=== PATIENT | female | born 1930 | race Caucasian/White ===

== ENCOUNTER → 2017-05-12 | Outpatient (REF) | payer MEDICARE ==
[~2017-05-12] MED LIST: CHLO125TA; CHLO25TA PO; CIPR500T3; CIPR500T3 PO; ESCI20TA; K-TA10TA2 PO; LEXA1TAB2 PO; LOTE0.5G OU; LYRI100C10; LYRI100C10 PO; METR500T10; METR500T10 PO; PRED20TA PO; TYLE1TAB5 PO; VITA10002; VITA10002 PO
== END ==
LOC: M LAB REF 12:52
PROVIDERS: ATTEND Internal Medicine
DX: R19.7 Diarrhea, unspecified (principal)

== ENCOUNTER 2017-05-13 11:25 | Inpatient (IN) | payer MEDICARE, OTHER ==
[~2017-05-13] VITALS: Ht 165.1 cm; Wt 61.6 kg
[2017-05-13] MEDS ORDERED: CIPR500T3 (11:38)
[2017-05-13] MEDS ORDERED: METR500T10 (11:38)
[2017-05-13] MEDS ORDERED: CHLO125TA (11:38)
[2017-05-13] MEDS ORDERED: LYRI100C10 (11:38)
[2017-05-13] MEDS ORDERED: ESCI20TA (11:38)
[2017-05-13] MEDS ORDERED: VITA10002 (11:38)
[2017-05-13] MEDS ORDERED: NS 500 ML IV ONE (13:00)
[2017-05-13 13:21] LABS: BASO # 0.1 K/mm3 (0.0-0.2); BASO % 0.7 % (0.0-1.0); EOS % 0.3 % (0.0-3.0); LARGE UNSTAINED CELL # 0.1 K/mm3 (0.0-0.4); LARGE UNSTAINED CELL % 1.6 % (0.0-4.0); LYMPH # 1.4 K/mm3 (1.5-4.5); LYMPH % 17.4 % (24.0-44.0); MEAN CORPUSCULAR HEMOGLOBIN 32.5 pg (27.0-33.0); MEAN CORPUSCULAR HGB CONC 32.9 g/dl (32.0-36.5); MEAN CORPUSCULAR VOLUME 98.8 fl (80.0-96.0); MONO # 0.4 K/mm3 (0.0-0.8); MONO % 4.7 % (0.0-5.0); NEUTROPHILS % 75.4 % (36.0-66.0); PLATELET COUNT, AUTOMATED 204 k/mm3 (150-450); RED CELL DISTRIBUTION WIDTH 13.7 % (11.5-14.5); WHITE BLOOD COUNT 7.9 K/mm3 (4.0-10.0)
[2017-05-13 13:44] LABS: ALBUMIN 3.4 GM/DL (3.2-5.2); ALBUMIN/GLOBULIN RATIO 0.89 (1.00-1.93); ALKALINE PHOSPHATASE 84 U/L (45-117); ALT/SGPT 14 U/L (12-78); AMYLASE 55 U/L (25-115); ANION GAP 5 MEQ/L (8-16); AST/SGOT 12 U/L (15-37); BILIRUBIN,DIRECT < 0.1 MG/DL (0.0-0.2); BILIRUBIN,TOTAL 0.3 MG/DL (0.2-1.0); BLOOD UREA NITROGEN 43 MG/DL (7-18); CALCIUM LEVEL 8.9 MG/DL (8.8-10.2); CARBON DIOXIDE LEVEL 21 MEQ/L (21-32); CHLORIDE LEVEL 115 MEQ/L (98-107); CREATININE FOR GFR 2.61 MG/DL (0.55-1.02); GLOMERULAR FILTRATION RATE 18.4 (>32); GLUCOSE, FASTING 110 MG/DL (83-110); POTASSIUM SERUM 2.8 MEQ/L (3.5-5.1); SODIUM LEVEL 141 MEQ/L (136-145); TOTAL PROTEIN 7.2 GM/DL (6.4-8.2)
[2017-05-13] MEDS ORDERED: KCL 10MEQ IN 100ML SWI (KRUN) 10 MEQ in APPROPRIATE DILUENT 1 EA IV ONE ×2 (15:15)
[2017-05-13] MEDS ORDERED: POTASSIUM CHLORIDE 10% LIQ 20 MEQ/15 ML UDC PO ONE (16:00)
[2017-05-13] MEDS ORDERED: NS 1,000 ML IV SCH (16:15)
[2017-05-13] MEDS ORDERED: CIPR500T3 PO (16:30)
[2017-05-13] MEDS ORDERED: VITA10002 PO (16:30)
[2017-05-13] MEDS ORDERED: CHLO25TA PO (16:30)
[2017-05-13] MEDS ORDERED: LEXA1TAB2 PO (16:30)
[2017-05-13] MEDS ORDERED: METR500T10 PO (16:30)
[2017-05-13] MEDS ORDERED: LOTE0.5G OU (16:30)
[2017-05-13] MEDS ORDERED: LYRI100C10 PO (16:30)
[2017-05-13] MEDS ORDERED: NS 1,500 ML IV SCH (19:33)
[2017-05-13] MEDS ORDERED: ACETAMINOPHEN TAB 650MG DOSE (2X325MG) PO PRN (19:45)
[2017-05-13] MEDS ORDERED: PINK BISMUTH SUSP 524MG/30ML ORAL SYRINGE PO PRN (19:45)
[2017-05-13] MEDS ORDERED: ONDANSETRON 4MG/2ML VIAL (J2405) IV PRN (19:45)
[2017-05-13] MEDS ORDERED: LOPERAMIDE 2 MG CAP PO PRN (19:45)
[2017-05-13] MEDS: PREGABALIN 100 MG CAP (LYRICA) PO SCH (21:17)
[2017-05-13] MEDS: HEPARIN SOD (PORCINE) 5000 UNITS/ML VIAL SC SCH (21:21)
[2017-05-13 22:29] VITALS: BP 116/49
[2017-05-13] MEDS ORDERED: POTASSIUM CHLORIDE 10 MEQ SR TABLET PO ONE (22:45)
[2017-05-14] MEDS ORDERED: TYLE1TAB5 PO (00:28)
[2017-05-14] MEDS ORDERED: TEMAZEPAM 7.5 MG CAP PO ONE (01:15)
[2017-05-14] MEDS ORDERED: NS 1,000 ML IV SCH (03:36)
[2017-05-14 05:37] VITALS: BP 116/62
[2017-05-14 07:23] LABS: MEAN CORPUSCULAR HEMOGLOBIN 32.8 pg (27.0-33.0); MEAN CORPUSCULAR HGB CONC 33.3 g/dl (32.0-36.5); MEAN CORPUSCULAR VOLUME 98.6 fl (80.0-96.0); RED CELL DISTRIBUTION WIDTH 14.1 % (11.5-14.5)
[2017-05-14 07:46] LABS: ALBUMIN 2.8 GM/DL (3.2-5.2); ALBUMIN/GLOBULIN RATIO 0.9 (1.00-1.93); BILIRUBIN,TOTAL 0.2 MG/DL (0.2-1.0); CALCIUM LEVEL 8.3 MG/DL (8.8-10.2); CREATININE FOR GFR 2.11 MG/DL (0.55-1.02); GLOMERULAR FILTRATION RATE 23.5 (>32); POTASSIUM SERUM 3.4 MEQ/L (3.5-5.1); TOTAL PROTEIN 5.9 GM/DL (6.4-8.2)
[2017-05-14] MEDS: CYANOCOBALAMIN 500 MCG TAB PO SCH (09:00)
[2017-05-14] MEDS: HEPARIN SOD (PORCINE) 5000 UNITS/ML VIAL SC SCH ×2 (09:01→20:57)
[2017-05-14] MEDS: PREGABALIN 100 MG CAP (LYRICA) PO SCH ×2 (09:01→20:57)
[2017-05-14] MEDS: ESCITALOPRAM OXALATE 10 MG TAB (LEXAPRO) PO SCH (09:01)
[2017-05-14] MEDS: POTASSIUM CHLORIDE 10 MEQ SR TABLET PO SCH ×2 (10:06→20:57)
[2017-05-14] MEDS: LR 1,000 ML IV SCH (10:06)
[2017-05-14] MEDS ORDERED: LOPERAMIDE 2 MG CAP PO PRN (13:30)
[2017-05-14 17:45] VITALS: BP 114/53
[2017-05-14 20:25] VITALS: BP 110/70
[2017-05-14] MEDS: TEMAZEPAM 7.5 MG CAP PO PRN (22:13)
[2017-05-15] MEDS: LR 1,000 ML IV SCH (01:15)
[2017-05-15 05:45] VITALS: BP 117/58
[2017-05-15 06:10] LABS: MEAN CORPUSCULAR HEMOGLOBIN 31.8 pg (27.0-33.0); MEAN CORPUSCULAR HGB CONC 32.3 g/dl (32.0-36.5); MEAN CORPUSCULAR VOLUME 98.4 fl (80.0-96.0); RED CELL DISTRIBUTION WIDTH 14.1 % (11.5-14.5); WHITE BLOOD COUNT 4.5 K/mm3 (4.0-10.0)
[2017-05-15 06:25] LABS: ALBUMIN 2.7 GM/DL (3.2-5.2); ALBUMIN/GLOBULIN RATIO 0.84 (1.00-1.93); BILIRUBIN,TOTAL 0.2 MG/DL (0.2-1.0); CALCIUM LEVEL 8.7 MG/DL (8.8-10.2); CREATININE FOR GFR 1.55 MG/DL (0.55-1.02); GLOMERULAR FILTRATION RATE 33.6 (>32); MAGNESIUM LEVEL 1.8 MG/DL (1.8-2.4); POTASSIUM SERUM 4.1 MEQ/L (3.5-5.1); TOTAL PROTEIN 5.9 GM/DL (6.4-8.2)
[2017-05-15] MEDS ORDERED: PREVNAR 13 VACCINE SYRINGE (CPT CODE:90670) IM SCH (09:00)
[2017-05-15] MEDS: CYANOCOBALAMIN 500 MCG TAB PO SCH (10:12)
[2017-05-15] MEDS: PREGABALIN 100 MG CAP (LYRICA) PO SCH ×2 (10:12→20:05)
[2017-05-15] MEDS: HEPARIN SOD (PORCINE) 5000 UNITS/ML VIAL SC SCH ×2 (10:12→20:05)
[2017-05-15] MEDS: ESCITALOPRAM OXALATE 10 MG TAB (LEXAPRO) PO SCH (10:12)
[2017-05-15] MEDS: NS 0.45% 1,000 ML IV SCH (11:18)
[2017-05-15 14:00] VITALS: BP 133/58
[2017-05-15] MEDS ORDERED: GOLYTELY SOLN 4000 ML BTL PO ONE (15:00)
[2017-05-15 21:15] VITALS: BP 136/63
[2017-05-16] VITALS (7 sets, daily range): BP systolic 140–151; BP diastolic 62–67
[2017-05-16] MEDS: NS 0.45% 1,000 ML IV SCH ×3 (02:36→21:28)
[2017-05-16 06:23] LABS: MEAN CORPUSCULAR HEMOGLOBIN 32.4 pg (27.0-33.0); MEAN CORPUSCULAR HGB CONC 33.2 g/dl (32.0-36.5); MEAN CORPUSCULAR VOLUME 97.8 fl (80.0-96.0); RED CELL DISTRIBUTION WIDTH 14.2 % (11.5-14.5)
[2017-05-16 06:46] LABS: ALBUMIN/GLOBULIN RATIO 0.94 (1.00-1.93); BILIRUBIN,TOTAL 0.2 MG/DL (0.2-1.0); CALCIUM LEVEL 8.3 MG/DL (8.8-10.2); CREATININE FOR GFR 1.36 MG/DL (0.55-1.02); GLOMERULAR FILTRATION RATE 39.1 (>32); MAGNESIUM LEVEL 1.6 MG/DL (1.8-2.4); POTASSIUM SERUM 3.2 MEQ/L (3.5-5.1); TOTAL PROTEIN 6.2 GM/DL (6.4-8.2)
[2017-05-16] MEDS ORDERED: GOLYTELY SOLN 4000 ML BTL PO ONE (07:00)
[2017-05-16] MEDS: HEPARIN SOD (PORCINE) 5000 UNITS/ML VIAL SC SCH ×2 (09:00→21:27)
[2017-05-16] MEDS: MAG SULF 1GM/100ML (MAG RUN) 1 GM in APPROPRIATE DILUENT 1 EA IV SCH ×2 (09:59→11:00)
[2017-05-16] MEDS: POTASSIUM CHLORIDE 10 MEQ SR TABLET PO SCH ×2 (09:59→21:28)
[2017-05-16] MEDS: ESCITALOPRAM OXALATE 10 MG TAB (LEXAPRO) PO SCH (10:00)
[2017-05-16] MEDS: CYANOCOBALAMIN 500 MCG TAB PO SCH (10:00)
[2017-05-16] MEDS: PREGABALIN 100 MG CAP (LYRICA) PO SCH ×2 (10:00→21:27)
[2017-05-16] MEDS ORDERED: PROPOFOL 200 MG/20 ML VIAL As Ordered ONE (15:26)
[2017-05-16] MEDS: predniSONE 20 MG TAB PO SCH (18:03)
[2017-05-16] MEDS: TEMAZEPAM 7.5 MG CAP PO PRN (22:48)
[2017-05-17 02:00] VITALS: BP 151/67
[2017-05-17 05:30] VITALS: BP 140/60
[2017-05-17 05:51] LABS: MEAN CORPUSCULAR HGB CONC 32.9 g/dl (32.0-36.5); MEAN CORPUSCULAR VOLUME 97.1 fl (80.0-96.0); RED CELL DISTRIBUTION WIDTH 14.1 % (11.5-14.5); WHITE BLOOD COUNT 3.9 K/mm3 (4.0-10.0)
[2017-05-17 06:06] LABS: ALBUMIN/GLOBULIN RATIO 0.91 (1.00-1.93); BILIRUBIN,TOTAL 0.2 MG/DL (0.2-1.0); CALCIUM LEVEL 8.6 MG/DL (8.8-10.2); CREATININE FOR GFR 1.29 MG/DL (0.55-1.02); GLOMERULAR FILTRATION RATE 41.5 (>32); MAGNESIUM LEVEL 2.3 MG/DL (1.8-2.4); TOTAL PROTEIN 6.3 GM/DL (6.4-8.2)
[2017-05-17] MEDS: HEPARIN SOD (PORCINE) 5000 UNITS/ML VIAL SC SCH (09:00)
[2017-05-17] MEDS ORDERED: PRED20TA PO (10:27)
[2017-05-17] MEDS ORDERED: K-TA10TA2 PO (10:27)
[2017-05-17] MEDS: predniSONE 20 MG TAB PO SCH (10:38)
[2017-05-17] MEDS: CYANOCOBALAMIN 500 MCG TAB PO SCH (10:38)
[2017-05-17] MEDS: ESCITALOPRAM OXALATE 10 MG TAB (LEXAPRO) PO SCH (10:38)
[2017-05-17] MEDS: PREGABALIN 100 MG CAP (LYRICA) PO SCH ×2 (10:39→21:48)
[2017-05-17] MEDS: POTASSIUM CHLORIDE 10 MEQ SR TABLET PO SCH ×2 (10:39→21:49)
[2017-05-17 12:00] VITALS: BP 128/59
[2017-05-17] MEDS: NS 0.45% 1,000 ML IV SCH (13:00)
[2017-05-17 14:00] VITALS: BP 108/54
[2017-05-17 22:00] VITALS: BP 138/68
[2017-05-17] MEDS: TEMAZEPAM 7.5 MG CAP PO PRN (22:53)
[2017-05-18 06:00] VITALS: BP 125/75
[2017-05-18 06:02] LABS: MEAN CORPUSCULAR HEMOGLOBIN 32.1 pg (27.0-33.0); MEAN CORPUSCULAR HGB CONC 31.9 g/dl (32.0-36.5); MEAN CORPUSCULAR VOLUME 100.7 fl (80.0-96.0); RED CELL DISTRIBUTION WIDTH 14.1 % (11.5-14.5)
[2017-05-18 06:43] LABS: ALBUMIN 2.8 GM/DL (3.2-5.2); ALBUMIN/GLOBULIN RATIO 0.88 (1.00-1.93); BILIRUBIN,TOTAL 0.3 MG/DL (0.2-1.0); CALCIUM LEVEL 8.5 MG/DL (8.8-10.2); CREATININE FOR GFR 1.15 MG/DL (0.55-1.02); GLOMERULAR FILTRATION RATE 47.4 (>32); POTASSIUM SERUM 4.7 MEQ/L (3.5-5.1)
[2017-05-18] MEDS: ESCITALOPRAM OXALATE 10 MG TAB (LEXAPRO) PO SCH (09:57)
[2017-05-18] MEDS: PREGABALIN 100 MG CAP (LYRICA) PO SCH (09:57)
[2017-05-18] MEDS: CYANOCOBALAMIN 500 MCG TAB PO SCH (09:57)
[2017-05-18] MEDS: predniSONE 20 MG TAB PO SCH (09:57)
[2017-05-18] MEDS: POTASSIUM CHLORIDE 10 MEQ SR TABLET PO SCH (09:57)
== END 2017-05-18 10:20 | disposition home or self-care (01) | DRG 392 ==
LOC: M ED 12:48 → M ED INP 19:33 → M MS4PR 22:04 → M MSPAV 05-14 17:46 → OBSVTOIN 05-15 08:49
PROVIDERS: ADMIT Internal Medicine; ATTEND Internal Medicine
PROC: 0DBL8ZX Excision of Transverse Colon, Via Natural or Artificial Opening Endoscopic, Diagnostic (ICD-10-PCS; 2017-05-16)
PROC: 0DBM8ZX Excision of Descending Colon, Via Natural or Artificial Opening Endoscopic, Diagnostic (ICD-10-PCS; 2017-05-16)
PROC: 0DBK8ZX Excision of Ascending Colon, Via Natural or Artificial Opening Endoscopic, Diagnostic (ICD-10-PCS; principal; 2017-05-16 15:30)
DX: R19.7 Diarrhea, unspecified (principal); N17.9 Acute kidney failure, unspecified; E87.6 Hypokalemia; F32.9 Major depressive disorder, single episode, unspecified; E87.8 Other disorders of electrolyte and fluid balance, not elsewhere classified; K57.30 Diverticulosis of large intestine without perforation or abscess without bleeding; K64.8 Other hemorrhoids; D12.2 Benign neoplasm of ascending colon; R55 Syncope and collapse; G62.9 Polyneuropathy, unspecified; Z88.0 Allergy status to penicillin; Z90.49 Acquired absence of other specified parts of digestive tract; Z87.891 Personal history of nicotine dependence; Z79.899 Other long term (current) drug therapy

== ENCOUNTER 2017-09-14 10:04 | Inpatient (IN) | payer OTHER ==
[~2017-09-14 10:04] MED LIST changes: -LYRI100C10; -LYRI100C10 PO; +METR1TAB66; +METR1TAB66 PO; -METR500T10; -METR500T10 PO; +PREG100CA; +PREG100CA PO
[2017-09-14] MEDS ORDERED: MULT1TAB10 PO (10:26)
[2017-09-14] MEDS ORDERED: COQ-100C2 PO (10:26)
[2017-09-14] MEDS ORDERED: VITA-176 PO (10:26)
[2017-09-14] MEDS ORDERED: CLAR10CA3 PO (10:26)
[2017-09-14] MEDS ORDERED: ONDANSETRON 4MG/2ML VIAL (J2405) IV ONE ×2 (11:00→16:00)
[2017-09-14] MEDS ORDERED: NS 1,000 ML IV SCH ×2 (11:00→17:25)
[2017-09-14 11:19] LABS: BASO % 0.5 % (0.0-1.0); EOS % 0.1 % (0.0-3.0); IMMATURE GRANULOCYTE % 0.4 % (0-0); LYMPH # 1.6 10^3/uL (1.5-4.5); LYMPH % 19.1 % (24.0-44.0); MEAN CORPUSCULAR HEMOGLOBIN 31.5 pg (27.0-33.0); MEAN CORPUSCULAR HGB CONC 34.6 g/dl (32.0-36.5); MEAN CORPUSCULAR VOLUME 91.1 fl (80.0-96.0); MONO # 0.7 10^3/uL (0.0-0.8); MONO % 8.4 % (0.0-5.0); NEUTROPHILS # 6.1 10^3/uL (1.8-7.7); NEUTROPHILS % 71.5 % (36.0-66.0); PLATELET COUNT, AUTOMATED 240 10^3/uL (150-450); RED CELL DISTRIBUTION WIDTH 13.2 % (11.5-14.5); WHITE BLOOD COUNT 8.5 10^3/uL (4.0-10.0)
[2017-09-14 11:35] LABS: CALCIUM LEVEL 9.2 MG/DL (8.8-10.2); CREATININE FOR GFR 1.12 MG/DL (0.55-1.02); GLOMERULAR FILTRATION RATE 48.8 (>32); MAGNESIUM LEVEL 1.9 MG/DL (1.8-2.4); POTASSIUM SERUM 3.2 MEQ/L (3.5-5.1)
[2017-09-14] MEDS ORDERED: POTASSIUM CHLORIDE 10 MEQ SR TABLET PO ONE (12:00)
[2017-09-14] MEDS ORDERED: METOCLOPRAMIDE INJ 10MG/2ML VIAL (J2765) IV ONE (17:00)
[2017-09-14] MEDS ORDERED: ONDANSETRON 4MG/2ML VIAL (J2405) IV PRN (17:30)
[2017-09-14] MEDS ORDERED: METOCLOPRAMIDE INJ 10MG/2ML VIAL (J2765) IV PRN (17:30)
[2017-09-14] MEDS ORDERED: ACETAMINOPHEN TAB 650MG DOSE (2X325MG) PO PRN (17:30)
[2017-09-14] MEDS ORDERED: PRED20TA PO (18:28)
[2017-09-14] MEDS: amLODIPine 5 MG TAB PO SCH (18:30)
[2017-09-14] MEDS: VANCOMYCIN ORAL SOL 250MG/5ML ORAL SYRINGE PO SCH ×2 (18:58→23:52)
--- NOTE | 2017-09-14 19:21 | HPEPDOC ---
General Date of Admission Sep 14, 2017 at 17:25 Chief Complaint The patient is a 87-year-old female Presented to the ER with complaints of diarrhea that has been worsening over the last few days. History of Present Illness Patient is an 87 year old female with a PMHx of HTN, CKD3, Neuropathy and Depression who presented to the ER with complaints of diarrhea that has acutely worsened in the last few days. Patient has noted that she usually experiences diarrhea on and off since May and has been following Dr. Faust for this. He has prescribed her Prednisone that last he saw her. Patient is currently still on prednisone and is not sure when she saw him last. She noted that over the last 3 days she has begun to experience worsening diarrhea that she describes as watery, without blood. She has had 5-10 bowel movements daily. She also notes associated nausea, without vomiting. She denies any abdominal pain, fever or chills. She notes that she has not been on any recent antibiotics or has had any sick contacts, although she notes that she lives in a community center with other elderly people. She notes no change in her weight, but her appetite has been poor. Her last oral intake was 3 days prior, although she notes that she has been drinking water to stay hydrated. She denies any dysuria, chest pain, shortness of breath, palpitations or cough. Home Medications Scheduled (Lotemax) 0.5 % Gel, 1 DOSE OU DAILY, (Reported) (Tylenol Pm Extra Strength 500-25 mg) 1 Tab Tab, 2 TAB PO QHS, (Reported) (Coq-10) 100 Mg Cap, 200 MG PO DAILY, (Reported) Chlorthalidone (Chlorthalidone) 25 Mg Tab, 25 MG PO DAILY, (Reported) Cholecalciferol (Vitamin D3) 1,000 Unit Chw, 1,000 UNIT PO DAILY, (Reported) Cyanocobalamin (Vitamin B-12) 1,000 Mcg Tab, 1,000 MCG PO DAILY, (Reported) Escitalopram Oxalate (Lexapro) 20 Mg Tab, 20 MG PO DAILY, (Reported) Multivitamins (Multivitamin Adults) 1 Tab Tab, 1 TAB PO DAILY, (Reported) Prednisone (Prednisone) 20 Mg Tab, 20 MG PO DAILY, (Reported) Pregabalin (Lyrica) 100 Mg Cap, 100 MG PO BID, (Reported) Scheduled PRN Loratadine (Claritin) 10 Mg Cap, 10 MG PO DAILY PRN for ALLERGIES, (Reported) Allergies Coded Allergies: Penicillins (Verified Allergy, Mild, AMOXICLLIN - RASH, 09/14/17) Penicillins Cross Reactors (Verified Allergy, Mild, AMOXICLLIN - RASH, ) Past Medical History Medical History HTN, CKD3, Neuropathy and Depression Surgical History Cholecystectomy Family History - Non-contributory given advanced age Social History - Denies the use of alcohol or illicit drugs; Ex-smoker many years prior - Denies recent travel or sick contacts - Lives in community center with elderly population - 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; 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 Review of Symptoms Other systems Negative otherwise stated in HPI Vital Signs - Vitals: BP 190/93, HR 60, RR 16, Sat 97%RA, Temp 97.3F - General: Lying in bed, No acute distress, Speaking in full sentences, AAOx3 - HEENT: NC, AT, PERRLA, EOMI - CVS: RRR, +S1S2 - Lungs: Fair air entry bilaterally, No appreciable wheezing / rales / rhonchi - Abdomen: Soft, Non-distended, Non-tender - Extremities: No lower extremity edema, No calf tenderness - Neuro: No focal motor or sensory deficit - Skin: No visible rashes Laboratory Data Labs 24H Laboratory Tests 2 09/14/17 11:01: Immature Granulocyte % (Auto) 0.4H, White Blood Count 8.5, Red Blood Count 4.25 , Hemoglobin 13.4, Hematocrit 38.7, Mean Corpuscular Volume 91.1, Mean Corpuscular Hemoglobin 31.5, Mean Corpuscular Hemoglobin Concent 34.6, Red Cell Distribution Width 13.2, Platelet Count 240, Neutrophils (%) (Auto) 71.5H, Lymphocytes (%) (Auto) 19.1L, Monocytes (%) (Auto) 8.4H, Eosinophils (%) (Auto) 0.1, Basophils (%) (Auto) 0.5, Neutrophils # (Auto) 6.1, Lymphocytes # (Auto) 1.6, Monocytes # (Auto) 0.7, Eosinophils # (Auto) 0.0, Basophils # (Auto) 0.0, Immature Granulocyte # (Auto) 0.0, Nucleated Red Blood Cells % (auto) 0.0, Anion Gap 10, Glomerular Filtration Rate 48.8, Blood Urea Nitrogen 19H, Creatinine 1.12H, Sodium Level 133L, Potassium Level 3.2L, Chloride Level 98, Carbon Dioxide Level 25, Calcium Level 9.2, Magnesium Level 1.9 09/14/17 12:31: Urine Appearance CLEAR, Urine Color YELLOW, Urine pH 6.0, Urine Specific [place] 1.011, Urine Protein NEGATIVE, Urine Glucose (UA) NEGATIVE, Urine Ketones NEGATIVE, Urine Urobilinogen 0.2, Urine Bilirubin NEGATIVE, Urine Leukocyte Esterase TRACEH, Urine Blood 1+H, Urine Nitrite NEGATIVE, Urine WBC ( Auto) 0, Urine RBC (Auto) 2, Urine Hyaline Casts (Auto) 0, Urine Bacteria (Auto ) NEGATIVE, Urine Squamous Epithelial Cells 0, Urine Sperm (Auto) 09/14/17 18:16: Lactic Acid Level 0.8 CBC/BMP Laboratory Tests 09/14/17 11:01 Red Blood Count 4.25, Mean Corpuscular Volume 91.1, Mean Corpuscular Hemoglobin 31.5, Mean Corpuscular Hemoglobin Concent 34.6, Red Cell Distribution Width 13.2 , Neutrophils (%) (Auto) 71.5 H, Lymphocytes (%) (Auto) 19.1 L, Monocytes (%) ( Auto) 8.4 H, Eosinophils (%) (Auto) 0.1, Basophils (%) (Auto) 0.5, Neutrophils # (Auto) 6.1, Lymphocytes # (Auto) 1.6, Monocytes # (Auto) 0.7, Eosinophils # ( Auto) 0.0, Basophils # (Auto) 0.0, Calcium Level 9.2 Microbiology Microbiology 09/14/17 Gastrointestinal Tract Panel (PCR) - Final, Complete Clostridium Difficile A/B 09/14/17 Urine Culture, Received Pending Plan / VTE VTE Prophylaxis Ordered?: Yes Plan Plan Intractable diarrhea and nausea - likely 2/2 C. diff colitis - Presented with a history of 3 days of diarrhea - Noted that he has been having on and off diarrhea since May and follows Dr. Faust as an outpatient - As per patient GI has prescribed her Prednisone; will discontinue that at this time - Physical unrevealing - Labs indicate Cr at baseline, No lactic acidosis - GI panel 09/14: Positive for C. diff - Will start Vancomycin 125mg PO q6h - Will start IV fluid hydration, gentle at 60c/hr Accelerated HTN - BP found to be elevated in ER - Has not been taking oral pills 2/2 nausea - Hold chlorthalidone - Will start Amlodipine 5mg daily CKD3 - Cr appears to be better than baseline - c/w IV fluid hydration for now for maintenance given diarrhea Neuropathy - c/w Lyrica Depression - c/w Escitalopram Gastrointestinal prophylaxis - Will start Protonix DVT prophylaxis - Will start Heparin RAMILA VILLASENOR MD Sep 14, 2017 19:20
[2017-09-14] MEDS ORDERED: PANTOPRAZOLE 40MG INJ (PROTONIX) (C9113) IV SCH (21:00)
[2017-09-14] MEDS: PREGABALIN 100 MG CAP (LYRICA) PO SCH (21:09)
[2017-09-14] MEDS: HEPARIN SOD (PORCINE) 5000 UNITS/ML VIAL SC SCH (21:10)
[2017-09-14 22:00] VITALS: BP 158/82
[2017-09-15] MEDS: VANCOMYCIN ORAL SOL 250MG/5ML ORAL SYRINGE PO SCH ×4 (05:49→23:55)
[2017-09-15] MEDS: HEPARIN SOD (PORCINE) 5000 UNITS/ML VIAL SC SCH ×3 (05:49→20:06)
--- NOTE | 2017-09-15 05:59 | REP ---
CT study of the brain without contrast: History: Change in personality. Comparison brain MRI study is from August 26, 2006 done at [facility]. CT findings: Digital lateral lockstitch shoulder joiner view is unremarkable. Bone window settings demonstrate an intact bony calvarium. There is vascular calcification in the distal carotid arteries bilaterally. No intraorbital abnormality is seen. There is mild diffuse cerebral atrophy. There is an old cortical infarction in the right parietal lobe. This is unchanged from comparison MRI study done in 2005. No new infarction is seen. No intracranial hemorrhage is seen. No extra-axial fluid collection or mass lesion is observed. 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 Vascular calcification and diffuse atrophy. No acute intracranial abnormality. Signed by Josef Mckeon MD 09/15/2017 08:44 A
[2017-09-15 06:00] VITALS: BP 146/74
[2017-09-15 06:50] LABS: BASO % 0.6 % (0.0-1.0); EOS # 0.1 10^3/uL (0.0-0.50); EOS % 1.2 % (0.0-3.0); IMMATURE GRANULOCYTE % 0.3 % (0-0); LYMPH # 1.5 10^3/uL (1.5-4.5); LYMPH % 21.6 % (24.0-44.0); MEAN CORPUSCULAR HEMOGLOBIN 31.9 pg (27.0-33.0); MEAN CORPUSCULAR VOLUME 93.7 fl (80.0-96.0); MONO # 0.8 10^3/uL (0.0-0.8); MONO % 11.2 % (0.0-5.0); NEUTROPHILS # 4.5 10^3/uL (1.8-7.7); NEUTROPHILS % 65.1 % (36.0-66.0); PLATELET COUNT, AUTOMATED 211 10^3/uL (150-450); RED CELL DISTRIBUTION WIDTH 13.2 % (11.5-14.5); WHITE BLOOD COUNT 6.9 10^3/uL (4.0-10.0)
[2017-09-15 07:05] LABS: ALBUMIN 3.2 GM/DL (3.2-5.2); BILIRUBIN,TOTAL 0.5 MG/DL (0.2-1.0); CALCIUM LEVEL 8.7 MG/DL (8.8-10.2); CREATININE FOR GFR 1.2 MG/DL (0.55-1.02); MAGNESIUM LEVEL 1.7 MG/DL (1.8-2.4); POTASSIUM SERUM 3.7 MEQ/L (3.5-5.1); TOTAL PROTEIN 6.4 GM/DL (6.4-8.2)
[2017-09-15] MEDS: predniSONE 10 MG TAB PO SCH (09:34)
[2017-09-15] MEDS: amLODIPine 5 MG TAB PO SCH (09:34)
[2017-09-15] MEDS: CYANOCOBALAMIN 500 MCG TAB PO SCH (09:34)
[2017-09-15] MEDS: ESCITALOPRAM OXALATE 10 MG TAB (LEXAPRO) PO SCH (09:34)
[2017-09-15] MEDS: PREGABALIN 100 MG CAP (LYRICA) PO SCH ×2 (09:34→20:06)
[2017-09-15] MEDS: MULTIVITAMINS/MINERALS THERAP 1 TAB PO SCH (09:34)
[2017-09-15] MEDS: VITAMIN D 1,000 INTERNATIONAL UNITS TABLET PO SCH (09:34)
[2017-09-15] MEDS: KCL 20MEQ in NS 1000ML 1,000 ML IV SCH (09:35)
[2017-09-15 09:42] VITALS: BP 136/81
[2017-09-15] MEDS ORDERED: MAG SULF 1GM/100ML (MAG RUN) 1 GM in APPROPRIATE DILUENT 1 EA IV ONE (10:00)
--- NOTE | 2017-09-15 10:30 | IPN ---
DATE: 09/15/2017 Miracle is seen on [address] [place]. She was admitted with Clostridium (C) difficile colitis. She has a history of hypertension, chronic kidney disease, neuropathy, and depression. She had been having intractable diarrhea for several years, was admitted in May, had a colonoscopy, was diagnosed with collagenous colitis, was placed on oral prednisone. She has seen Dr. Faust in followup but only once. She is still on the prednisone. She says she is uses this is on a as needed basis but it sounds like she is using it almost everyday, at least for the past week. She is vague on her dosing on this. She was admitted with diarrhea, was diagnosed with C difficile colitis. There has been no recent antibiotic exposure. She is on recurrent doses of steroids. PHYSICAL EXAMINATION: VITAL SIGNS: Stable, 146/74, pulse 67, respiratory rate 18, 97.6 degrees. GENERAL APPEARANCE: She is alert, conversant, looks well. No distress. HEENT: Unremarkable. HEART: Regular rate and rhythm. 1/2 systolic ejection murmur. ABDOMEN: Soft, nondistended, nontender. Good bowel sounds. EXTREMITIES: No clubbing, cyanosis, edema. LABORATORIES: White count 6.9, hemoglobin 12.7, platelets 211. Sodium 137, potassium 3.7, BUN 16, creatinine 1.2, magnesium 1.7. Stool positive for C difficile. IMPRESSION: 1. Clostridium difficile colitis. She is on oral vancomycin 125 mg every 6 hours. She does not have toxic megacolon. She is on gentle intravenous (IV) hydration. The C difficile is probably from the recurrent steroid therapy. She is on 20 mg a day. This was abruptly discontinued upon discharge. I think it needs to be at least tapered down as I am not sure how long she has been taking that relatively high dose. I will put her on 10 mg daily beginning today, and then would anticipate in about 3 days the dose can be reduced to 5 mg daily and then weaned off. We are going to stop her Protonix. She should not be on a proton pump inhibitor (PPI) in the short or residential with a history of C difficile colitis reason to use this. Also, start probiotic. We discussed probiotic with her. We will initiate this while in the hospital. She should continue upon discharge and then was cautioned to take probiotic before any antibiotic exposure in the future. 2. Hypomagnesemia. IV magnesium has been ordered. 3. Hypokalemia. Change IV fluids to potassium containing IV fluids. 4. Hypertension. Continue current regimen. 5. History of depression. Continue her selective serotonin reuptake inhibitor (SSRI). 6. Neuropathy. Continue her Lyrica. 7. Questionable aortic stenosis. She was suppose to have had an echocardiogram last month. It was not done. We will do one while she is in the hospital.
[2017-09-15 10:31] VITALS: BP 136/81
[2017-09-15] MEDS: LACTOBACILLUS ACIDOPHILUS CAP (BACID) PO SCH ×2 (12:40→17:43)
[2017-09-15 13:42] VITALS: BP 113/70
[2017-09-15 22:00] VITALS: BP 130/62
[2017-09-16] MEDS: KCL 20MEQ in NS 1000ML 1,000 ML IV SCH (00:07)
[2017-09-16] MEDS: VANCOMYCIN ORAL SOL 250MG/5ML ORAL SYRINGE PO SCH ×3 (05:44→18:39)
[2017-09-16] MEDS: HEPARIN SOD (PORCINE) 5000 UNITS/ML VIAL SC SCH ×3 (05:45→22:00)
[2017-09-16 06:00] VITALS: BP 128/62
[2017-09-16 07:15] LABS: BASO % 0.6 % (0.0-1.0); EOS # 0.1 10^3/uL (0.0-0.50); EOS % 1.1 % (0.0-3.0); IMMATURE GRANULOCYTE % 0.3 % (0-0); LYMPH # 1.5 10^3/uL (1.5-4.5); LYMPH % 24.8 % (24.0-44.0); MEAN CORPUSCULAR HEMOGLOBIN 31.4 pg (27.0-33.0); MEAN CORPUSCULAR HGB CONC 33.4 g/dl (32.0-36.5); MEAN CORPUSCULAR VOLUME 93.9 fl (80.0-96.0); MONO # 0.7 10^3/uL (0.0-0.8); NEUTROPHILS # 3.8 10^3/uL (1.8-7.7); NEUTROPHILS % 62.2 % (36.0-66.0); PLATELET COUNT, AUTOMATED 201 10^3/uL (150-450); RED CELL DISTRIBUTION WIDTH 13.1 % (11.5-14.5); WHITE BLOOD COUNT 6.2 10^3/uL (4.0-10.0)
[2017-09-16 07:44] LABS: ALBUMIN/GLOBULIN RATIO 0.94 (1.00-1.93); BILIRUBIN,TOTAL 0.4 MG/DL (0.2-1.0); CALCIUM LEVEL 8.7 MG/DL (8.8-10.2); CREATININE FOR GFR 1.07 MG/DL (0.55-1.02); GLOMERULAR FILTRATION RATE 51.4 (>32); MAGNESIUM LEVEL 1.9 MG/DL (1.8-2.4); POTASSIUM SERUM 3.7 MEQ/L (3.5-5.1); TOTAL PROTEIN 6.2 GM/DL (6.4-8.2)
--- NOTE | 2017-09-16 08:02 | IPN ---
DATE: 09/16/2017 Miracle feels better. She is hungry. She would like to advance her diet. She has not had any diarrhea. It does not look like she has had a bowel movement since she has been here. She had a urine culture that showed small colony growth of E coli and Enterococcus 40,000 units of each on a clean catch sample. She has no urinary tract infection symptoms. No frequency, urgency or dysuria. PHYSICAL EXAMINATION: VITAL SIGNS: Temperature 98.4, blood pressure 128/62, pulse 60, respiratory rate 15, 98% oxygen saturation. She is alert, conversant in no distress. Lungs are clear. Heart regular rate and rhythm. Abdomen soft, nondistended. No masses. Good bowel sounds. Nontender. No peripheral edema. LABS: White count 6.2, hemoglobin 11.8, platelets 201. Electrolytes are pending today. Urine culture as noted above showed 40,000 colonies of E coli and Enterococcus. IMPRESSION: 1. C difficile colitis: Continue oral vancomycin. Will stop the IV fluids. Will advance her diet. 2. Collagenous colitis: She was on prednisone as an outpatient using it on a frequent basis. Therefore, I considered her essentially dependent on the prednisone and feel it should be weaned rather than abruptly discontinued. I cut her down to 10 mg a day yesterday hoping that 3 days of 10 mg could then be reduced to 5 mg daily and then weaned off. I also stopped her Protonix as it increased her risk of recurrence of C difficile and I started a probiotic. 3. Question urinary tract infection: She has only 40,000 colony forming units of E coli and Enterococcus. I am concerned about antibiotic therapy in a patient being treated for C difficile colitis. However, phosphonomycin as a single dose should be sufficient for both E coli and the Enterococcus and is unlikely to prolong her C difficile colitis. This is also hard to get as an outpatient so I will take the opportunity to treat her while she is here. 4. Hypomagnesemia/hypokalemia: Unfortunately, the labs are not back on time for rounds today. I will have to check these later. 5. Hypertension: Will continue current regimen. 6. Depression: Continue her selective serotonin reuptake inhibitor (SSRI). 7. Question aortic stenosis: Echocardiogram has been ordered. Results are pending. Hopefully, she will be able to be discharged tomorrow.
[2017-09-16] MEDS: PREGABALIN 100 MG CAP (LYRICA) PO SCH ×2 (08:22→21:15)
[2017-09-16] MEDS: amLODIPine 5 MG TAB PO SCH (08:23)
[2017-09-16] MEDS: predniSONE 10 MG TAB PO SCH (08:23)
[2017-09-16] MEDS: ESCITALOPRAM OXALATE 10 MG TAB (LEXAPRO) PO SCH (08:23)
[2017-09-16] MEDS: CYANOCOBALAMIN 500 MCG TAB PO SCH (08:23)
[2017-09-16] MEDS: MULTIVITAMINS/MINERALS THERAP 1 TAB PO SCH (08:23)
[2017-09-16] MEDS: VITAMIN D 1,000 INTERNATIONAL UNITS TABLET PO SCH (08:23)
[2017-09-16] MEDS: LACTOBACILLUS ACIDOPHILUS CAP (BACID) PO SCH ×3 (08:24→18:39)
[2017-09-16] MEDS ORDERED: FOSFOMYCIN TROMETHAMINE 3 GM POWDER PACKET (MONUROL) PO ONE (09:00)
[2017-09-16 16:00] VITALS: BP 138/63
[2017-09-16] MEDS ORDERED: PREVNAR 13 VACCINE SYRINGE (CPT CODE:90670) IM ONE (18:00)
[2017-09-16 22:00] VITALS: BP 121/69
[2017-09-17] MEDS: VANCOMYCIN ORAL SOL 250MG/5ML ORAL SYRINGE PO SCH ×5 (00:28→23:37)
[2017-09-17] MEDS: HEPARIN SOD (PORCINE) 5000 UNITS/ML VIAL SC SCH ×3 (05:22→22:00)
[2017-09-17 06:00] VITALS: BP 110/62
[2017-09-17 06:26] VITALS: BP 110/62
[2017-09-17 06:41] LABS: BASO % 0.4 % (0.0-1.0); EOS # 0.1 10^3/uL (0.0-0.50); EOS % 1.4 % (0.0-3.0); IMMATURE GRANULOCYTE % 0.3 % (0-0); LYMPH # 1.6 10^3/uL (1.5-4.5); LYMPH % 21.8 % (24.0-44.0); MEAN CORPUSCULAR HEMOGLOBIN 31.4 pg (27.0-33.0); MEAN CORPUSCULAR HGB CONC 33.7 g/dl (32.0-36.5); MEAN CORPUSCULAR VOLUME 93.1 fl (80.0-96.0); MONO # 0.7 10^3/uL (0.0-0.8); MONO % 9.7 % (0.0-5.0); NEUTROPHILS # 4.9 10^3/uL (1.8-7.7); NEUTROPHILS % 66.4 % (36.0-66.0); PLATELET COUNT, AUTOMATED 182 10^3/uL (150-450); RED CELL DISTRIBUTION WIDTH 13.1 % (11.5-14.5); WHITE BLOOD COUNT 7.3 10^3/uL (4.0-10.0)
[2017-09-17 07:00] LABS: CREATININE FOR GFR 1.1 MG/DL (0.55-1.02)
[2017-09-17 07:01] LABS: ALBUMIN/GLOBULIN RATIO 1.07 (1.00-1.93); BILIRUBIN,TOTAL 0.3 MG/DL (0.2-1.0); CALCIUM LEVEL 8.7 MG/DL (8.8-10.2); GLOMERULAR FILTRATION RATE 49.8 (>32); MAGNESIUM LEVEL 1.9 MG/DL (1.8-2.4); POTASSIUM SERUM 3.6 MEQ/L (3.5-5.1); TOTAL PROTEIN 5.8 GM/DL (6.4-8.2)
[2017-09-17] MEDS ORDERED: POTASSIUM CHLORIDE 10 MEQ SR TABLET PO ONE (08:00)
[2017-09-17] MEDS: CYANOCOBALAMIN 500 MCG TAB PO SCH (08:22)
[2017-09-17] MEDS: VITAMIN D 1,000 INTERNATIONAL UNITS TABLET PO SCH (08:22)
[2017-09-17] MEDS: LACTOBACILLUS ACIDOPHILUS CAP (BACID) PO SCH ×3 (08:22→17:17)
[2017-09-17] MEDS: ESCITALOPRAM OXALATE 10 MG TAB (LEXAPRO) PO SCH (08:23)
[2017-09-17] MEDS: PREGABALIN 100 MG CAP (LYRICA) PO SCH ×2 (08:23→22:10)
[2017-09-17] MEDS: amLODIPine 5 MG TAB PO SCH (08:24)
[2017-09-17] MEDS: MULTIVITAMINS/MINERALS THERAP 1 TAB PO SCH (08:24)
[2017-09-17] MEDS: predniSONE 10 MG TAB PO SCH (08:24)
[2017-09-17 14:00] VITALS: BP 113/66
--- NOTE | 2017-09-17 15:40 | IPN ---
DATE: 09/17/2017 The patient is seen and examined. Reported worsening diarrhea, about seven episodes overnight, watery with generalized weakness. Denies any chest pain, pressure or discomfort. Reported poor oral intake. Denies any fevers or chills. VITAL SIGNS: Temperature 98.3, pulse 62, respiratory rate 18, blood pressure 120/68, pulse oximetry 96% on room air. LABORATORY DATA: WBC 7.3, hemoglobin and hematocrit 11.3/33.5, platelets 182. Chemistry: Sodium 138, potassium 3.6, chloride 107, bicarbonate 25, BUN 14, creatinine 1.1. PHYSICAL EXAMINATION: GENERAL: The patient is comfortable, alert, in no acute distress. HEENT: Normocephalic, atraumatic. PULMONARY: Bilaterally clear to auscultation. CARDIAC: Regular rate and rhythm. ABDOMEN: Soft, nontender. Positive bowel sounds, hyperactive. EXTREMITIES: No edema in bilateral lower extremities. ASSESSMENT AND PLAN: This is an 87-year-old female patient with underlying medical history of chronic kidney disease stage III, neuropathy, depression, hypertension, with history of collagenous colitis. Admitted with intractable diarrhea and nausea secondary to Clostridium (C) difficile colitis. 1. Intractable diarrhea and nausea secondary to C difficile colitis with underlying collagenous colitis. The patient continued on prednisone. 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 Repeat C difficile is positive, as per Dr. Faust, then the patient should not be on steroids. If C difficile repeat has been negative, then the patient should be treated for collagenous colitis with IV high level of steroids. Continue vancomycin for now. Followup stool studies. Initially on IV hydration. Currently euvolemic. Followup kidney function. 2. Hypokalemia, hypomagnesemia. Supplemented. Currently with stable level. 3. Collagenous colitis. The patient is steroid dependent. Followup GI for further recommendations. 4. Urinary tract infection (UTI). Treated. 5. Hypertension. We will continue current medications. 6. Depression. Continue current medications. 7. Aortic stenosis. Followup echo. 8. Deep vein thrombosis (DVT) prophylaxis. Heparin subcutaneously. DISPOSITION PLANNING: Pending GI followup and clinical improvement.
[2017-09-17 22:00] VITALS: BP 110/71
[2017-09-18 06:00] VITALS: BP 130/58
[2017-09-18] MEDS: HEPARIN SOD (PORCINE) 5000 UNITS/ML VIAL SC SCH ×3 (06:00→21:03)
[2017-09-18] MEDS: VANCOMYCIN ORAL SOL 250MG/5ML ORAL SYRINGE PO SCH (06:13)
[2017-09-18 07:17] LABS: BASO % 0.5 % (0.0-1.0); EOS # 0.1 10^3/uL (0.0-0.50); EOS % 1.4 % (0.0-3.0); IMMATURE GRANULOCYTE % 0.3 % (0-0); LYMPH # 1.7 10^3/uL (1.5-4.5); LYMPH % 28.2 % (24.0-44.0); MEAN CORPUSCULAR HEMOGLOBIN 31.7 pg (27.0-33.0); MEAN CORPUSCULAR HGB CONC 34.1 g/dl (32.0-36.5); MEAN CORPUSCULAR VOLUME 92.7 fl (80.0-96.0); MONO # 0.6 10^3/uL (0.0-0.8); MONO % 10.2 % (0.0-5.0); NEUTROPHILS # 3.5 10^3/uL (1.8-7.7); NEUTROPHILS % 59.4 % (36.0-66.0); PLATELET COUNT, AUTOMATED 202 10^3/uL (150-450); RED CELL DISTRIBUTION WIDTH 13.2 % (11.5-14.5); WHITE BLOOD COUNT 5.9 10^3/uL (4.0-10.0)
[2017-09-18 07:28] LABS: BILIRUBIN,TOTAL 0.3 MG/DL (0.2-1.0); CALCIUM LEVEL 9.1 MG/DL (8.8-10.2); CREATININE FOR GFR 0.99 MG/DL (0.55-1.02); GLOMERULAR FILTRATION RATE 56.2 (>32); MAGNESIUM LEVEL 1.7 MG/DL (1.8-2.4); POTASSIUM SERUM 3.6 MEQ/L (3.5-5.1)
[2017-09-18] MEDS: ESCITALOPRAM OXALATE 10 MG TAB (LEXAPRO) PO SCH (08:47)
[2017-09-18] MEDS: MULTIVITAMINS/MINERALS THERAP 1 TAB PO SCH (08:47)
[2017-09-18] MEDS: LACTOBACILLUS ACIDOPHILUS CAP (BACID) PO SCH ×3 (08:47→18:48)
[2017-09-18] MEDS: CYANOCOBALAMIN 500 MCG TAB PO SCH (08:48)
[2017-09-18] MEDS: predniSONE 10 MG TAB PO SCH (08:48)
[2017-09-18] MEDS: PREGABALIN 100 MG CAP (LYRICA) PO SCH ×2 (08:48→20:43)
[2017-09-18] MEDS: VITAMIN D 1,000 INTERNATIONAL UNITS TABLET PO SCH (08:48)
[2017-09-18] MEDS: amLODIPine 5 MG TAB PO SCH (08:49)
[2017-09-18] MEDS ORDERED: MAG SULF 1GM/100ML (MAG RUN) 1 GM in APPROPRIATE DILUENT 1 EA IV ONE (09:00)
[2017-09-18] MEDS ORDERED: POTASSIUM CHLORIDE 10 MEQ SR TABLET PO ONE (10:00)
[2017-09-18 14:00] VITALS: BP 112/65
[2017-09-18] MEDS ORDERED: GOLYTELY SOLN 4000 ML BTL PO ONE (16:00)
--- NOTE | 2017-09-18 17:02 | IPN ---
DATE: 09/18/2017 The patient is seen and examined. Continued to report significant diarrhea overnight, does not feel much improvement, is upset that her barbecue cook has not yet seen her. The patient denies any nausea or vomiting, fevers or chills. Denies any chest pain, pressure or discomfort. VITAL SIGNS: Temperature 97.9, pulse 56, respiratory rate 18, blood pressure 130/58, pulse oximetry 98% on room air. LABORATORY DATA: WBC 5.9, hemoglobin and hematocrit 11.3/33.1, platelets 202. Chemistry: Sodium 137, potassium 3.6, chloride 105, bicarbonate 25, BUN 13, creatinine 0.99. PHYSICAL EXAMINATION: GENERAL: Comfortable, in no acute distress. HEENT: Normocephalic, atraumatic. PULMONARY: Bilaterally clear to auscultation. CARDIAC: Regular rate and rhythm with normal S1, S2. ABDOMEN: Soft, nontender. Positive bowel sounds, hyperactive bowel sounds. EXTREMITIES: No edema of bilateral lower extremities. ASSESSMENT AND PLAN: This is an 87-year-old female patient with underlying medical history of chronic kidney disease (CKD) stage III, neuropathy, depression, hypertension, history of collagenous colitis, admitted with intractable diarrhea and nausea secondary to Clostridium (C) difficile colitis. 1. Intractable diarrhea and nausea secondary to C difficile colitis with underlying collagenous colitis. The patient's diarrhea persisted. Continue prednisone for collagenous colitis. Consulted Dr. Fauts, gastroenterology, for persistent diarrhea and repeat C difficile also positive, refractory to vancomycin. Patient <<2:11>> stool transplant as per Dr. Faust. Stool studies appreciated. Initially on IV fluids. Currently euvolemic. Kidney function returned to baseline. 2. Hypokalemia, hypomagnesemia. Supplemented and improved. 3. Collagenous colitis. The patient is steroid dependent. Consulted gastroenterology. Stool studies. 4. Urinary tract infection (UTI), treated. 5. Hypertension. Continue current medication. 6. Depression. Continue current medication. 7. Aortic stenosis. Followup echocardiogram. 8. Deep vein thrombosis (DVT) prophylaxis. Heparin subcutaneously. DISPOSITION PLANNING: Pending gastroenterology (GI) and possible stool transplant tomorrow. Infectious disease also consulted. Pending clinical improvement.
[2017-09-18 22:00] VITALS: BP 124/63
[2017-09-19 06:00] VITALS: BP 129/65
[2017-09-19] MEDS: HEPARIN SOD (PORCINE) 5000 UNITS/ML VIAL SC SCH ×3 (06:00→21:28)
[2017-09-19] MEDS ORDERED: GOLYTELY SOLN 4000 ML BTL PO ONE (06:00)
[2017-09-19 06:50] LABS: BASO % 0.6 % (0.0-1.0); EOS # 0.1 10^3/uL (0.0-0.50); EOS % 2.1 % (0.0-3.0); IMMATURE GRANULOCYTE % 0.2 % (0-0); LYMPH # 1.8 10^3/uL (1.5-4.5); LYMPH % 33.9 % (24.0-44.0); MEAN CORPUSCULAR HEMOGLOBIN 31.6 pg (27.0-33.0); MEAN CORPUSCULAR HGB CONC 34.2 g/dl (32.0-36.5); MEAN CORPUSCULAR VOLUME 92.3 fl (80.0-96.0); MONO # 0.5 10^3/uL (0.0-0.8); MONO % 9.6 % (0.0-5.0); NEUTROPHILS # 2.8 10^3/uL (1.8-7.7); NEUTROPHILS % 53.6 % (36.0-66.0); PLATELET COUNT, AUTOMATED 190 10^3/uL (150-450); RED CELL DISTRIBUTION WIDTH 13.2 % (11.5-14.5); WHITE BLOOD COUNT 5.2 10^3/uL (4.0-10.0)
[2017-09-19 07:13] LABS: ALBUMIN 3.2 GM/DL (3.2-5.2); ALBUMIN/GLOBULIN RATIO 1.03 (1.00-1.93); BILIRUBIN,TOTAL 0.3 MG/DL (0.2-1.0); CALCIUM LEVEL 8.7 MG/DL (8.8-10.2); CREATININE FOR GFR 0.99 MG/DL (0.55-1.02); GLOMERULAR FILTRATION RATE 56.2 (>32); MAGNESIUM LEVEL 1.7 MG/DL (1.8-2.4); POTASSIUM SERUM 3.5 MEQ/L (3.5-5.1); TOTAL PROTEIN 6.3 GM/DL (6.4-8.2)
[2017-09-19] MEDS: LACTOBACILLUS ACIDOPHILUS CAP (BACID) PO SCH ×3 (09:27→18:28)
[2017-09-19] MEDS: ESCITALOPRAM OXALATE 10 MG TAB (LEXAPRO) PO SCH (09:27)
[2017-09-19] MEDS: MULTIVITAMINS/MINERALS THERAP 1 TAB PO SCH (09:27)
[2017-09-19] MEDS: CYANOCOBALAMIN 500 MCG TAB PO SCH (09:27)
[2017-09-19] MEDS: amLODIPine 5 MG TAB PO SCH (09:27)
[2017-09-19] MEDS: VITAMIN D 1,000 INTERNATIONAL UNITS TABLET PO SCH (09:27)
[2017-09-19] MEDS: predniSONE 10 MG TAB PO SCH (09:27)
[2017-09-19] MEDS: PREGABALIN 100 MG CAP (LYRICA) PO SCH ×2 (09:28→21:28)
[2017-09-19] MEDS ORDERED: PROPOFOL 200 MG/20 ML VIAL As Ordered ONE ×3 (13:10→14:16)
--- NOTE | 2017-09-19 14:27 | ROOR ---
Patient Name: Miracle Mccabe Procedure Date: 09/19/2017 1:59 PM Date of : 1930 Age: 87 Room: [facility] Gender: Female Note Status: Finalized Procedure: Colonoscopy to Cecum + Cold Snare Polypectomy + Fecal Microbiota Transplant Indications: Fecal transplant for treatment of Clostridium difficile diarrhea Providers: Bhavik Faust MD Referring MD: TERRA REAVES MD Requesting Provider: Medicines: Monitored Anesthesia Care Complications: No immediate complications. Procedure: Pre-Anesthesia Assessment: - The heart rate, respiratory rate, oxygen saturations, blood pressure, adequacy of pulmonary ventilation, and response to care were monitored throughout the procedure. The Colonoscope was introduced through the anus and advanced to the cecum, identified by appendiceal orifice and ileocecal valve. The colonoscopy was performed without difficulty. The patient tolerated the procedure well. The quality of the bowel preparation was good. Findings: The perianal and digital rectal examinations were normal. Non-bleeding internal hemorrhoids were found during retroflexion. The hemorrhoids were small and Grade I (internal hemorrhoids that do not prolapse). Multiple small and large-mouthed diverticula were found in the recto-sigmoid colon, sigmoid colon and descending colon. A small polyp was found at 20 cm proximal to the anus. The polyp was sessile. The polyp was removed with a cold snare. Resection and retrieval were complete. A small polyp was found at 30 cm proximal to the anus. The polyp was sessile. The polyp was removed with a cold snare. Resection and retrieval were complete. Fecal Microbiota Transplant (Bacteriotherapy): Donor stool was prepared using saline as per protocol. Approximately 250 mL of the emulsified donor stool was instilled in the cecum. A detailed colonoscopic exam could not be performed upon scope withdrawal secondary to limited visibility from the instilled stool. The exam was otherwise without abnormality on direct and retroflexion views. Impression: - Non-bleeding internal hemorrhoids. - Diverticulosis in the recto-sigmoid colon, in the sigmoid colon and in the descending colon. - One small polyp at 20 cm proximal to the anus, removed with a cold snare. Resected and retrieved. - One small polyp at 30 cm proximal to the anus, removed with a cold snare. Resected and retrieved. - The examination was otherwise normal on direct and retroflexion views. - Fecal Microbiota Transplant (Bacteriotherapy) performed in the cecum. - The exam was otherwise normal to the cecum. Recommendation: - Patient has a contact number available for emergencies. The signs and symptoms of potential delayed complications were discussed with the patient. Return to normal activities tomorrow. Written discharge instructions were provided to the patient. - High fiber diet. - Return patient to [facility] for [facility] care. - The findings and recommendations were discussed with the referring physician. Bhavik Faust MD Bhavik Faust MD 09/19/2017 2:27:05 PM This report has been signed electronically. Number of Addenda: 0 Note Initiated On: 09/19/2017 1:59 PM Estimated Blood Loss: Estimated blood loss: none.
[2017-09-19] MEDS ORDERED: FECAL MICROBIOTA PREPARATION 250 ML BTL (J3590) XX ONE (14:30)
[2017-09-19] MEDS ORDERED: POTASSIUM CHLORIDE 10 MEQ SR TABLET PO ONE (15:00)
[2017-09-19] MEDS ORDERED: MAG SULF 1GM/100ML (MAG RUN) 1 GM in APPROPRIATE DILUENT 1 EA IV ONE (15:00)
--- NOTE | 2017-09-19 15:16 | IPN ---
DATE: 09/19/2017 Patient seen and examined. Is currently being bowel prepped for a stool transplant. Denies any chest pain, pressure, discomfort, fevers, or chills. Continues to have generalized weakness. VITAL SIGNS: Temperature 98.9, pulse 89, respirations 18, blood pressure 130/60, pulse oximetry 98% on room air. LABORATORY DATA: WBC 5.2, hemoglobin and hematocrit 11.9/34.8, platelets 190. Chemistry: Sodium 136, potassium 3.5, chloride 104, bicarbonate 24, BUN 10, creatinine 0.99. PHYSICAL EXAMINATION: GENERAL: Patient frail. Comfortable in no acute distress. HEENT: Normocephalic, atraumatic. PULMONARY: Bilaterally clear to auscultation. CARDIAC: Regular rate and rhythm. Normal S1, S2. ABDOMEN: Soft and nontender. Positive bowel sounds. Hyperactive bowel sounds. EXTREMITIES: No edema, bilateral lower extremities. ASSESSMENT AND PLAN: This is an 87-year-old female patient with underlying medical history of chronic kidney disease (CKD), stage III, neuropathy, depression, hypertension, history of collagenous colitis, admitted with intractable diarrhea and nausea secondary to Clostridium (C) difficile colitis. 1. Intractable diarrhea and nausea secondary to C. difficile colitis with underlying collagenous colitis. Patient's diarrhea persisted. Continue prednisone for collagenous colitis. Case discussed with Dr. Faust, gastroenterology, given persistent diarrhea and repeat C. Difficile positive refractory to vancomycin. Patient will be taken for stool transplant by Dr. Faust. Intravenous (IV) fluids initially given. Patient currently euvolemic. Kidney function back to baseline. 2. Hypokalemia, hypomagnesemia, supplemented and improved. 3. Collagenous colitis, steroid dependent. Consulted gastroenterology. Stool studies appreciated. 4. Urinary tract infection (UTI), treated. 5. Hypertension. Continue current medication. 6. Depression. Continue current medication. 7. Aortic stenosis. Echo. Outpatient followup. 8. Deep vein thrombosis (DVT) prophylaxis. Heparin subcutaneous. DISPOSITION: Pending stool transplant, clinical improvement. Physical therapy appreciated.
[2017-09-19 22:00] VITALS: BP 134/74
[2017-09-20 06:00] VITALS: BP 139/62
[2017-09-20] MEDS: HEPARIN SOD (PORCINE) 5000 UNITS/ML VIAL SC SCH ×3 (06:00→21:48)
[2017-09-20 06:41] LABS: BASO # 0.1 10^3/uL (0.0-0.2); BASO % 0.9 % (0.0-1.0); EOS # 0.1 10^3/uL (0.0-0.50); EOS % 1.7 % (0.0-3.0); IMMATURE GRANULOCYTE % 0.2 % (0-0); LYMPH # 1.7 10^3/uL (1.5-4.5); LYMPH % 29.2 % (24.0-44.0); MEAN CORPUSCULAR HEMOGLOBIN 31.6 pg (27.0-33.0); MEAN CORPUSCULAR HGB CONC 33.8 g/dl (32.0-36.5); MEAN CORPUSCULAR VOLUME 93.4 fl (80.0-96.0); MONO # 0.7 10^3/uL (0.0-0.8); MONO % 11.3 % (0.0-5.0); NEUTROPHILS # 3.3 10^3/uL (1.8-7.7); NEUTROPHILS % 56.7 % (36.0-66.0); PLATELET COUNT, AUTOMATED 206 10^3/uL (150-450); RED CELL DISTRIBUTION WIDTH 13.2 % (11.5-14.5); WHITE BLOOD COUNT 5.8 10^3/uL (4.0-10.0)
[2017-09-20 07:06] LABS: ALBUMIN 3.1 GM/DL (3.2-5.2); ALBUMIN/GLOBULIN RATIO 1.11 (1.00-1.93); BILIRUBIN,TOTAL 0.2 MG/DL (0.2-1.0); CALCIUM LEVEL 8.8 MG/DL (8.8-10.2); CREATININE FOR GFR 1.05 MG/DL (0.55-1.02); GLOMERULAR FILTRATION RATE 52.5 (>32); POTASSIUM SERUM 3.8 MEQ/L (3.5-5.1); TOTAL PROTEIN 5.9 GM/DL (6.4-8.2)
[2017-09-20] MEDS: MULTIVITAMINS/MINERALS THERAP 1 TAB PO SCH (08:51)
[2017-09-20] MEDS: VITAMIN D 1,000 INTERNATIONAL UNITS TABLET PO SCH (08:52)
[2017-09-20] MEDS: PREGABALIN 100 MG CAP (LYRICA) PO SCH ×2 (08:52→21:47)
[2017-09-20] MEDS: predniSONE 10 MG TAB PO SCH (08:53)
[2017-09-20] MEDS: amLODIPine 5 MG TAB PO SCH (08:53)
[2017-09-20] MEDS: ESCITALOPRAM OXALATE 10 MG TAB (LEXAPRO) PO SCH (08:54)
[2017-09-20] MEDS: LACTOBACILLUS ACIDOPHILUS CAP (BACID) PO SCH ×3 (08:55→16:48)
[2017-09-20] MEDS: CYANOCOBALAMIN 500 MCG TAB PO SCH (08:55)
[2017-09-20] MEDS ORDERED: PRED10TA2 PO (10:36)
[2017-09-20] MEDS ORDERED: RISATAB3 PO (10:36)
[2017-09-20 14:00] VITALS: BP 126/60
--- NOTE | 2017-09-20 15:21 | DSES ---
DATE OF ADMISSION: 09/14/2017 DATE OF DISCHARGE: 09/21/17 discharge delayed for social reason, patient reported needing one more day to make sure home is ready to receive her. FINAL DIAGNOSES: Intractable diarrhea secondary to Clostridium difficile colitis. Nausea. Underlying collagenous colitis. Hypokalemia. Hypomagnesemia. Urinary tract infection (UTI). Hypertension. Depression. Deconditioning. HISTORY OF PRESENT ILLNESS: This is an 87-year-old female patient with underlying medical history of hypertension, chronic kidney disease, neuropathy, depression, presented to the emergency room with complaints of diarrhea that has acutely worsened over the last few days. The patient has noted that she usually experiences diarrhea on and off since May, and has been following with Dr. Faust for this and has been prescribed prednisone. Dr. Faust saw her and was currently still on prednisone and is not sure when she saw him last. She noted that over the past 3 days, she has begun to experience worsening diarrhea and that she described as watery without blood, and had about 5-10 bowel movements daily, and has noted associated with nausea, without vomiting. Denies any abdominal pain, fevers or chills. The patient denies any sick contact, recent antibiotic use. Lives at a community center with other elderly people. Denies any weight change. HOSPITAL COURSE: The patient was admitted to the hospital. Patient's gastrointestinal (GI) panel is positive Clostridium difficile (C diff) and also urine culture was positive for Escherichia (E) coli and Enterococcus faecalis. Urinary tract infection was treated. The patient was placed on vancomycin without much improvement, with persistent diarrhea. Subsequently, Siding Coreboard Inspector, Dr. Faust, was consulted, and it was determined that the patient would need stool transplant given the patient is at risk of worsening Clostridium difficile , given patient is on prednisone for collagenous colitis. Dr. Faust determined that the patient will need a stool transplant. Subsequently, the patient was taken for a stool transplant. Following the procedure, the patient felt much better with resolving diarrhea. Currently, the patient is tolerating oral. Physical therapy has been appreciated. Patient passed physical therapy. Tolerating oral, comfortable, ready for discharge for further care as an outpatient. As per Dr. Faust, recommend no salt diet, avoid hospital admission, but after discussing with the patient, the patient reported that she is too weak to go home today and would like to return home tomorrow for home arrangements, no one is able to receive her at home. Temperature 98.2, pulse 52, respirations 20, blood pressure 139/62, pulse oximetry 97% on room air. GENERAL: Patient alert and oriented times three, in no acute distress. HEENT: Normocephalic, atraumatic. PULMONARY: Bilaterally clear to auscultation. CARDIAC: Regular rate and rhythm. Normal S1, S2. ABDOMEN: Soft, nontender. Positive bowel sounds. EXTREMITIES: No clubbing, cyanosis or edema. LABORATORY: WBC 5.8, hemoglobin and hematocrit 11.5 over 34, platelets 206. Chemistry: Sodium 140, potassium 3.8, chloride 107, bicarbonate 26, BUN 12, creatinine 1.05. DISCHARGE MEDICATION: - prednisone 10 mg by mouth daily - probiotics three times a day - chlorthalidone 25 mg by mouth daily - vitamin D3 1000 units by mouth daily - Coenzyme Q10 200 mg by mouth daily - vitamin B12 1000 mcg by mouth daily - Lexapro 20 mg by mouth daily - Claritin 10 mg by mouth daily as needed - Lotemax 0.5% gel ocular daily - multivitamin one tablet by mouth daily - Lyrica 100 mg by mouth twice a day - acetaminophen 500 and 25 mg combination, two tablets by mouth nightly DISCHARGE INSTRUCTIONS: The patient was instructed to followup with primary care provider in 7 days and Siding Coreboard Inspector, Dr. Faust, in 2 weeks. Return to the hospital if symptoms worsen. No salt diet. Avoid hospital admission. Avoid antibiotics. Discharged delayed by one day secondary to deconditioning and patient's home arrangements [facility]
[2017-09-20] MEDS ORDERED: HEPARIN SOD (PORCINE) 5000 UNITS/ML VIAL As Ordered ONE (21:42)
[2017-09-20 22:00] VITALS: BP 147/62
[2017-09-21] MEDS: HEPARIN SOD (PORCINE) 5000 UNITS/ML VIAL SC SCH ×2 (05:09→08:08)
[2017-09-21 06:00] VITALS: BP 132/64
[2017-09-21 06:29] LABS: BASO % 0.8 % (0.0-1.0); EOS # 0.1 10^3/uL (0.0-0.50); EOS % 1.8 % (0.0-3.0); IMMATURE GRANULOCYTE % 0.4 % (0-0); LYMPH # 1.9 10^3/uL (1.5-4.5); LYMPH % 38.1 % (24.0-44.0); MEAN CORPUSCULAR HEMOGLOBIN 31.6 pg (27.0-33.0); MEAN CORPUSCULAR HGB CONC 33.4 g/dl (32.0-36.5); MEAN CORPUSCULAR VOLUME 94.4 fl (80.0-96.0); MONO # 0.6 10^3/uL (0.0-0.8); MONO % 11.9 % (0.0-5.0); NEUTROPHILS # 2.3 10^3/uL (1.8-7.7); PLATELET COUNT, AUTOMATED 180 10^3/uL (150-450); RED CELL DISTRIBUTION WIDTH 13.2 % (11.5-14.5); WHITE BLOOD COUNT 4.9 10^3/uL (4.0-10.0)
[2017-09-21 06:58] LABS: ALBUMIN 3.1 GM/DL (3.2-5.2); ALBUMIN/GLOBULIN RATIO 1.11 (1.00-1.93); BILIRUBIN,TOTAL 0.3 MG/DL (0.2-1.0); CALCIUM LEVEL 8.9 MG/DL (8.8-10.2); CREATININE FOR GFR 1.18 MG/DL (0.55-1.02); GLOMERULAR FILTRATION RATE 45.9 (>32); MAGNESIUM LEVEL 1.9 MG/DL (1.8-2.4); TOTAL PROTEIN 5.9 GM/DL (6.4-8.2)
--- NOTE | 2017-09-21 09:17 | ECHO ---
DATE OF PROCEDURE: 09/16/2017 REFERRING PHYSICIAN: Dr. Manuel Dhillon INDICATION: Heart murmur, unspecified. HEIGHT: 165 cm WEIGHT: 62.5 kg 2D MEASUREMENTS: Ventricular septum: 1.10 cm Ventricular wall: 1.20 cm Left ventricle diastole: 4.8 cm Left Atrium: 3.8 cm Aortic root: 3.1 cm LVOT: 2.2 cm Inferior vena cava: 1.0 cm DOPPLER MEASUREMENTS: Peak aortic valve velocity: 311cm/s Peak aortic valve gradient: 38 mmHg Mean aortic valve gradient: 24 mmHg Aortic valve VTI: 93.3 cm Trace aortic regurgitation. LVOT velocity: 66.2 cm/s LVOT VTI: 19 cm Mitral E velocity: 70.1 cm/s Mitral A velocity: 90.8 cm/s Mitral deceleration time: 208 ms Estimated right ventricle systolic pressure: 36 mmHg by pulmonary acceleration time method MITRAL ANNULAR TISSUE DOPPLER: E prime septal: 7.1 cm/s E prime lateral: 3.8 cm/s DESCRIPTION: Rhythm was sinus. This was a moderately technically difficult echocardiogram. No pericardial effusion. This was a 2D, M-mode, color flow Doppler, and pulse wave Doppler examination and included mitral annular tissue Doppler. CONCLUSIONS: 1. Severe focal thickening and focal calcific deposits of a three-cusp aortic valve. Severe reduction in aortic cusp mobility. Severe aortic valve stenosis with peak aortic velocity of 311 cm/s, mean aortic valve gradient of 24 mmHg, aortic valve area 0.80 sq cm (VTI, continuity equation), and aortic stenosis dimensionless index 0.21. Trace aortic regurgitation. 2. Akinesis of the mid inferior and mid inferolateral left ventricle (LV) segments and the basilar inferior LV segment with normal wall motion and wall thickening elsewhere. Preserved overall LV systolic function. Left ventricular ejection fraction (LVEF) 60% by visual estimate. Grade1 LV diastolic dysfunction (impaired relaxation filling pattern). 3. Mild mitral annular calcification. No mitral regurgitation. 4. Suggestive of mild elevation of pulmonary artery systolic pressure. ADDITIONAL COMMENTS AND RECOMMENDATIONS: If this patient has symptoms attributable to severe aortic stenosis, then consider aortic valve replacement. If the patient is asymptomatic with regards to aortic valve stenosis, then close clinical surveillance and a followup echocardiogram-Doppler in 1 year recommended. KANNAN
[2017-09-21] MEDS: MULTIVITAMINS/MINERALS THERAP 1 TAB PO SCH (10:53)
[2017-09-21] MEDS: predniSONE 10 MG TAB PO SCH (10:53)
[2017-09-21 10:54] VITALS: BP 132/64
[2017-09-21] MEDS: PREGABALIN 100 MG CAP (LYRICA) PO SCH (10:54)
[2017-09-21] MEDS: amLODIPine 5 MG TAB PO SCH (10:54)
[2017-09-21] MEDS: CYANOCOBALAMIN 500 MCG TAB PO SCH (10:55)
[2017-09-21] MEDS: VITAMIN D 1,000 INTERNATIONAL UNITS TABLET PO SCH (10:55)
[2017-09-21] MEDS: LACTOBACILLUS ACIDOPHILUS CAP (BACID) PO SCH (10:55)
[2017-09-21] MEDS: ESCITALOPRAM OXALATE 10 MG TAB (LEXAPRO) PO SCH (10:55)
--- NOTE | 2017-09-21 12:49 | DSES ---
DATE OF ADMISSION: 09/14/2017 DATE OF DISCHARGE: 09/21/2017 ADDENDUM: Patient's discharge date is 09/21/2017. Patient has remained in the hospital for one additional day to help establish home services as well as create a safe home environment upon discharge. I called to get completed discharge summary from 09/20/2017 and nothing else has changed compared to that. Patient's vital signs remain stable and physical remains unchanged. Addendum dictated: 09/22/2017 1147 Addendum Transcribed: 09/21/2017 1154 nini BRUNNER
--- NOTE | 2017-09-21 17:38 | CR ---
DATE OF CONSULTATION: 09/18/2017 This is an 87-year-old white female well-known to me who was previously diagnosed with microscopic colitis and hospitalization approximated 4-6 weeks ago for chronic diarrhea. At that time, the patient's stools were negative for Clostridium (C) difficile and she was admitted for severe diarrhea for 6 weeks prior and dehydration. Colonoscopy was performed and biopsies came back showing microscopic colitis. She was discharged and treated subsequently with steroids with resolution of her symptoms. The patient now is being admitted to [facility] ([facility]) with multiple medical problems including neuropathy, chronic renal insufficiency, hypertension and depression who has had increasing bouts of diarrhea approximately 3 or 4 days prior to admission. She had worsening diarrhea, having 5-10 bowel movements a day, was admitted to [facility] again for the diarrhea. She has not had any recent antibiotics and has not had any exposure to any patients that were ill with C. difficile. PAST MEDICAL HISTORY: Positive for neuropathy, depression, hypertension, chronic renal insufficiency. MEDICATIONS: Include: - chlorthalidone - vitamin D3 - Lexapro - intermittent doses of prednisone FAMILY HISTORY: Noncontributory. SOCIAL HISTORY: Cigarettes, alcohol, none recently. Patient is an ex-smoker. REVIEW OF SYSTEMS: 11 point review of systems noncontributory to the above problem. PHYSICAL EXAMINATION: Was essentially benign. 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 The patient was admitted and found to be positive for Clostridium (C) difficile of unclear etiology. PLAN: Will be to plan to have the patient on IV fluids and will be setting her up for a bowel preparation for a stool transplant in the next 24 hours.
[2017-09-26 08:06] LABS: CHLORIDE FECAL 20 mmol/L (.); OSMOLARITY STOOL 269 mOsmol/kg (Not Estab.); POTASSIUM FECAL 45 mmol/L (.); SODIUM FECAL 43 mmol/L (.)
== END 2017-09-21 13:18 | disposition home or self-care (01) | DRG 372 ==
LOC: M ED 10:04 → EDBD 10:04 → M ED INP 17:25 → M MS5PR 20:30
PROVIDERS: ADMIT Internal Medicine; ATTEND Hospitalist
PROC: 3E0H8GC Introduction of Other Therapeutic Substance into Lower GI, Via Natural or Artificial Opening Endoscopic (ICD-10-PCS; 2017-09-19)
PROC: 0DBQ8ZX Excision of Anus, Via Natural or Artificial Opening Endoscopic, Diagnostic (ICD-10-PCS; principal; 2017-09-19 14:03)
DX: A04.72 Enterocolitis due to Clostridium difficile, not specified as recurrent (principal); N39.0 Urinary tract infection, site not specified; N18.3 Chronic kidney disease, stage 3 (moderate); I12.9 Hypertensive chronic kidney disease with stage 1 through stage 4 chronic kidney disease, or unspecified chronic kidney disease; B96.20 Unspecified Escherichia coli [E. coli] as the cause of diseases classified elsewhere; G62.9 Polyneuropathy, unspecified; E87.6 Hypokalemia; E83.42 Hypomagnesemia; K52.831 Collagenous colitis; F32.9 Major depressive disorder, single episode, unspecified; Z79.52 Long term (current) use of systemic steroids; Z79.899 Other long term (current) drug therapy; Z88.0 Allergy status to penicillin; Z90.49 Acquired absence of other specified parts of digestive tract; Z87.891 Personal history of nicotine dependence

== ENCOUNTER → 2017-11-10 | Outpatient (REF) | payer OTHER ==
[~2017-11-10] MED LIST changes: +CLAR10CA3 PO; +COQ-100C2 PO; +MULT1TAB10 PO; +PRED10TA2 PO; +RISATAB3 PO; +VITA-176 PO
== END ==
LOC: M LAB REF 13:38
PROVIDERS: ATTEND Internal Medicine Gastroenterology
DX: R19.7 Diarrhea, unspecified (principal)

== ENCOUNTER 2017-11-14 13:02 | Inpatient (IN) | payer OTHER ==
[~2017-11-14] VITALS: Ht 167.6 cm; Wt 67.9 kg
[2017-11-14] MEDS ORDERED: VANC125C2 PO (13:09)
[2017-11-14] MEDS: NS 1,000 ML IV SCH ×2 (13:36→20:16)
[2017-11-14 13:59] LABS: BASO % 0.5 % (0.0-1.0); EOS % 0.2 % (0.0-3.0); IMMATURE GRANULOCYTE % 0.2 % (0-0); LYMPH # 1.8 10^3/uL (1.5-4.5); LYMPH % 27.5 % (24.0-44.0); MEAN CORPUSCULAR HEMOGLOBIN 31.2 pg (27.0-33.0); MEAN CORPUSCULAR HGB CONC 35.1 g/dl (32.0-36.5); MEAN CORPUSCULAR VOLUME 88.9 fl (80.0-96.0); MONO # 0.7 10^3/uL (0.0-0.8); NEUTROPHILS # 3.9 10^3/uL (1.8-7.7); NEUTROPHILS % 60.6 % (36.0-66.0); PLATELET COUNT, AUTOMATED 205 10^3/uL (150-450); RED CELL DISTRIBUTION WIDTH 13.8 % (11.5-14.5); WHITE BLOOD COUNT 6.4 10^3/uL (4.0-10.0)
[2017-11-14 14:20] LABS: ALBUMIN 3.6 GM/DL (3.2-5.2); ALBUMIN/GLOBULIN RATIO 1.13 (1.00-1.93); ALKALINE PHOSPHATASE 73 U/L (45-117); ALT/SGPT 14 U/L (12-78); ANION GAP 8 MEQ/L (8-16); AST/SGOT 17 U/L (7-37); BILIRUBIN,DIRECT < 0.1 MG/DL (0.0-0.2); BILIRUBIN,TOTAL 0.3 MG/DL (0.2-1.0); BLOOD UREA NITROGEN 17 MG/DL (7-18); CALCIUM LEVEL 8.6 MG/DL (8.8-10.2); CARBON DIOXIDE LEVEL 24 MEQ/L (21-32); CHLORIDE LEVEL 94 MEQ/L (98-107); CREATININE FOR GFR 1.31 MG/DL (0.55-1.02); GLOMERULAR FILTRATION RATE 40.7 (>32); GLUCOSE, FASTING 97 MG/DL (83-110); POTASSIUM SERUM 3.1 MEQ/L (3.5-5.1); SODIUM LEVEL 126 MEQ/L (136-145); TOTAL PROTEIN 6.8 GM/DL (6.4-8.2)
[2017-11-14] MEDS ORDERED: POTASSIUM CHLORIDE 10 MEQ SR TABLET PO ONE (14:30)
[2017-11-14 15:20] LABS: MAGNESIUM LEVEL 1.8 MG/DL (1.8-2.4); PHOSPHORUS LEVEL 2.9 MG/DL (2.5-4.9)
[2017-11-14] MEDS ORDERED: ONDANSETRON 4MG/2ML VIAL (J2405) IV PRN (15:45)
[2017-11-14] MEDS ORDERED: [UNRECOGNIZED DRUG - CODE] IV (16:07)
[2017-11-14] MEDS ORDERED: RISATAB3 PO (16:20)
[2017-11-14 16:45] VITALS: BP 147/65
[2017-11-14] MEDS: KCL 40MEQ in NS 1000ML 1,000 ML IV SCH (18:06)
[2017-11-14] MEDS: ENOXAPARIN 30 MG/0.3 ML SYR (J1650) SC SCH (18:07)
--- NOTE | 2017-11-14 20:46 | HPEPDOC ---
General Date of Admission Nov 14, 2017 at 15:36 Attending Physician: RHETT EVERETT MD Chief Complaint The patient is a 87-year-old female admitted with a reason for visit of C Difficile Diarrhea. Source: Patient Exam Limitations: No limitations Timing/Duration: Day(s) Severity: Mild History of Present Illness Miracle Mccabe, 87 year old women, who presents to the emergency department for diarrhea. She says that she has had a watery diarrhea for a week and has been treated with an antibiotic for it and is currently on treatment day 3 of . She is not aware of the name of the antibiotic. She says that she has been compliant with medication. Despite her treatment she feels that her diarrhea is not getting better and also has been fatigue. She claims to have 2 bowel movements per day. Her stool is "very liquidy" and not formed. She has been trying to stay hydrated by drinking gatorade. She denies blood in her stool or pain with defecation. She denies abdominal pain. This is her 3rd time having these symptoms, the past 2 times she had positive GI panels for c. diff toxin. She believes the first episode was in May of this year and the second episode was in August of this year. Both of those times she was treated here in [facility]. With the first episode she had a colonoscopy which revealed microscopic colitis and with the second episode she had a colonoscopy and fecal transplant. She denies recent travel or sick contacts. She denies trying new foods recently. She denies fever, chills, nausea, vomiting, lightheadedness. Home Medications Scheduled (Lotemax) 0.5 % Gel, 1 DROP OU DAILY, (Reported) (Tylenol Pm Extra Strength 500-25 mg) 1 Tab Tab, 2 TAB PO QHS, (Reported) (Coq-10) 100 Mg Cap, 200 MG PO DAILY, (Reported) (Zinplava) 1,000 Mg/40 Ml Luciana, 1,000 MG IV ONCE (Ольга-Bid Probiotic) 1 Tab Tab, 1 TAB PO TID, (Reported) Chlorthalidone (Chlorthalidone) 25 Mg Tab, 25 MG PO DAILY, (Reported) Cholecalciferol (Vitamin D3) 1,000 Unit Chw, 1,000 UNIT PO DAILY, (Reported) Cyanocobalamin (Vitamin B-12) 1,000 Mcg Tab, 1,000 MCG PO DAILY, (Reported) Escitalopram Oxalate (Lexapro) 20 Mg Tab, 20 MG PO DAILY, (Reported) Multivitamins (Multivitamin Adults) 1 Tab Tab, 1 TAB PO DAILY, (Reported) Pregabalin (Lyrica) 100 Mg Cap, 100 MG PO BID, (Reported) Vancomycin Hcl (Vancomycin HCl) 125 Mg Cap, 125 MG PO QID, (Reported) Scheduled PRN Loratadine (Claritin) 10 Mg Cap, 10 MG PO DAILY PRN for ALLERGIES, (Reported) Allergies Coded Allergies: Penicillins (Verified Allergy, Mild, AMOXICLLIN - RASH, 09/14/17) Penicillins Cross Reactors (Verified Allergy, Mild, AMOXICLLIN - RASH, ) Past Medical History Medical History Patient has past medical history of HTN, cataracts, B12 deficiency, c. diff, and CKD. Admits to allergy to amoxicillin. Claims to get a rash on her face and scalp. Has not received amoxicillin in >10 years. Surgical History cholecystectomy, cataracts Family History Significant Family History: No pertinent family hx Social History * Smoker: former Smoker (quit >30years ago), less than 1 pack/day, cigarettes Alcohol: Denies Drugs: denies Recent Travel/Sick Contacts: Denies: Recent travel, Recent sick contacts Psychosocial History: No pertinent psych hx Review of Systems Constitutional: Reports: Weakness, Denies: Chills, Fever, Malaise ENT: Denies: Ear Pain, Dysphagia, Sore Throat Skin: Denies: Rash Pulmonary: Denies: Dyspnea, Cough Cardiovascular: Denies: Chest Pain, Palpitations, Lt Headedness Gastrointestinal: Reports: Diarrhea, Denies: Nausea, Vomiting, Abdominal Pain, Hematochezia Genitourinary: Denies: Dysuria, Hematuria Neurological: Reports: Weakness Physical Examination General Exam: Positive: Alert, Cooperative, No Acute Distress ENT Exam: Positive: Atraumatic, Mucous membr. moist/pink, Pharynx Normal Chest Exam: Positive: Clear to auscultation, Negative: Rales, Rhonchi, Wheezing Heart Exam: Positive: Rate Normal, Normal S1, Normal S2, Negative: Gallops, Murmurs, Rubs Abdomen Exam: Positive: Normal bowel sounds, Soft, Tenderness (patient's face grimaced with palpation, denies tenderness) Extremity Exam: Negative: Edema Neuro Exam: Positive: Normal Speech, Strength at 5/5 X4 ext Psych Exam: Positive: Mental status NL Vital Signs Vital Signs Date Time Temp Pulse Resp B/P (MAP) Pulse Ox O2 Delivery O2 Flow Rate FiO2 11/14/17 16:45 97.7 58 18 147/65 (92) 11/14/17 13:03 96 Room Air Laboratory Data Labs 24H Laboratory Tests 2 11/14/17 13:49: Immature Granulocyte % (Auto) 0.2H, White Blood Count 6.4, Red Blood Count 3.88L , Hemoglobin 12.1, Hematocrit 34.5L, Mean Corpuscular Volume 88.9, Mean Corpuscular Hemoglobin 31.2, Mean Corpuscular Hemoglobin Concent 35.1, Red Cell Distribution Width 13.8, Platelet Count 205, Neutrophils (%) (Auto) 60.6, Lymphocytes (%) (Auto) 27.5, Monocytes (%) (Auto) 11.0H, Eosinophils (%) (Auto) 0.2, Basophils (%) (Auto) 0.5, Neutrophils # (Auto) 3.9, Lymphocytes # (Auto) 1.8, Monocytes # (Auto) 0.7, Eosinophils # (Auto) 0.0, Basophils # (Auto) 0.0, Immature Granulocyte # (Auto) 0.0, Nucleated Red Blood Cells % (auto) 0.0, Anion Gap 8, Glomerular Filtration Rate 40.7, Calcium Level 8.6L, Phosphorus Level 2.9, Magnesium Level 1.8, Aspartate Amino Transf (AST/SGOT) 17, Alanine Aminotransferase (ALT/SGPT) 14, Alkaline Phosphatase 73, Total Bilirubin 0.3, Direct Bilirubin < 0.1, Total Protein 6.8, Albumin 3.6, Albumin/Globulin Ratio 1.13, Thyroid Stimulating Hormone (TSH) 1.440, Free Thyroxine 1.00 CBC/BMP Laboratory Tests 11/14/17 13:49 Red Blood Count 3.88 L, Mean Corpuscular Volume 88.9, Mean Corpuscular Hemoglobin 31.2, Mean Corpuscular Hemoglobin Concent 35.1, Red Cell Distribution Width 13.8, Neutrophils (%) (Auto) 60.6, Lymphocytes (%) (Auto) 27.5, Monocytes (%) (Auto) 11.0 H, Eosinophils (%) (Auto) 0.2, Basophils (%) ( Auto) 0.5, Neutrophils # (Auto) 3.9, Lymphocytes # (Auto) 1.8, Monocytes # (Auto ) 0.7, Eosinophils # (Auto) 0.0, Basophils # (Auto) 0.0 Assessment/Plan 1. C. Diff - Started on Dificid -WBC wnl, -No lactic acid, -Magnesium and Phoshorus wnl - GI panel order to rule out other causes of diarrhea - History of colitis -ID consult -GI consult 2. Dehydration -Secondary to diarrhea -Fluid replacement have been started 3. Hyponatremia - Mostly likely due to diarrhea - NS fluid replacement on board 4. Hypokalemia - Replacement ordered 5. DVT - Lovenox 6. Depression - Cont Lexapro 7. Neuropathy -continue home meds Plan / VTE VTE Prophylaxis Ordered?: Yes GME ATTESTATION GME ATTESTATION My faculty preceptor for this patient encounter was physically present during the encounter and was fully available. All aspects of the patient interview, examination, medical decision making process, and medical care plan development were reviewed and approved by the faculty preceptor. The faculty preceptor is aware and concurs with the plan as stated in the body of this note and will attest to such by his/her cosignature. PETERSON PRASAD DO Nov 14, 2017 17:40 RHETT EVERETT MD Nov 15, 2017 12:56
[2017-11-14 22:00] VITALS: BP 144/63
[2017-11-14] MEDS: RAMELTEON 8 MG TAB (ROZEREM) PO SCH (22:38)
[2017-11-14] MEDS: FIDAXOMICIN 200 MG TAB (DIFICID) PO SCH (22:38)
[2017-11-15] MEDS: KCL 40MEQ in NS 1000ML 1,000 ML IV SCH (03:48)
[2017-11-15 06:00] VITALS: BP 127/55
[2017-11-15 06:25] LABS: MEAN CORPUSCULAR HEMOGLOBIN 30.7 pg (27.0-33.0); MEAN CORPUSCULAR HGB CONC 34.3 g/dl (32.0-36.5); MEAN CORPUSCULAR VOLUME 89.7 fl (80.0-96.0); PLATELET COUNT, AUTOMATED 206 10^3/uL (150-450); RED CELL DISTRIBUTION WIDTH 14.1 % (11.5-14.5); WHITE BLOOD COUNT 6.3 10^3/uL (4.0-10.0)
[2017-11-15 06:48] LABS: CALCIUM LEVEL 8.4 MG/DL (8.8-10.2); CREATININE FOR GFR 1.04 MG/DL (0.55-1.02); GLOMERULAR FILTRATION RATE 53.1 (>32); MAGNESIUM LEVEL 2.1 MG/DL (1.8-2.4); POTASSIUM SERUM 4.3 MEQ/L (3.5-5.1)
[2017-11-15] MEDS: ENOXAPARIN 30 MG/0.3 ML SYR (J1650) SC SCH (10:03)
[2017-11-15] MEDS: FIDAXOMICIN 200 MG TAB (DIFICID) PO SCH ×2 (10:03→21:38)
[2017-11-15] MEDS: KCL 20MEQ in NS 1000ML 1,000 ML IV SCH (10:04)
--- NOTE | 2017-11-15 10:09 | IPN ---
DATE: 11/15/2017 PRIMARY CARE PROVIDER: Dr. Raheem Gillespie ATTENDING PHYSICIAN: Dr. Mani Pratt CONSULTANTS: Dr. Bhavik Faust HISTORY: Miracle was admitted with recurrent Clostridium (C.) difficile colitis. She underwent fecal microbiota transfer in August, which has now failed. She had positive C diff on her GI panel. She denies any abdominal pain, fever, chills. PHYSICAL EXAMINATION: 127/55, pulse 64, respiratory rate 18, 96 degrees, 94% oxygen saturation. GENERAL APPEARANCE: She looks well. No distress. LUNGS: Clear. HEART: Regular rhythm. ABDOMEN: Soft, nontender, nondistended. No masses. LABORATORIES: Sodium 133, creatinine is down to 1.0, white count is 6.3, hemoglobin 11.9, platelets 206. IMPRESSION: 1. Recurrent C difficile colitis. The case has been discussed with Dr. Bhavik Faust. He plans to see the patient in consultation. The patient is currently on Dificid and consideration being given to providing the patient with Zinplava as a monoclonal antibody therapy, which would require this to be provided as an outpatient. He will be seeing the patient in consultation. 2. Acute renal failure. This has improved with IV fluids. We are reducing the rate of the IV infusion. 3. Hyponatremia. This is improved with IV fluids. 4. Hypokalemia. Receiving IV potassium with correction of hypokalemia.
[2017-11-15 14:00] VITALS: BP 139/65
[2017-11-15] MEDS: PROCTOFOAM-HC 1% FOAM 10 GM CAN PR PRN ×2 (14:48→18:55)
[2017-11-15] MEDS ORDERED: RAMELTEON 8 MG TAB (ROZEREM) PO SCH (21:00)
[2017-11-15] MEDS: RAMELTEON 8 MG TAB (ROZEREM) PO SCH (21:38)
[2017-11-15] MEDS: ACETAMINOPHEN TAB 650MG DOSE (2X325MG) PO PRN (21:40)
[2017-11-15 22:00] VITALS: BP 139/62
[2017-11-16] MEDS: KCL 20MEQ in NS 1000ML 1,000 ML IV SCH ×2 (04:39→23:08)
[2017-11-16 06:00] VITALS: BP 161/73
[2017-11-16 06:45] LABS: BASO % 0.8 % (0.0-1.0); EOS % 0.6 % (0.0-3.0); IMMATURE GRANULOCYTE % 0.2 % (0-0); LYMPH # 1.4 10^3/uL (1.5-4.5); LYMPH % 29.2 % (24.0-44.0); MEAN CORPUSCULAR HGB CONC 34.2 g/dl (32.0-36.5); MEAN CORPUSCULAR VOLUME 90.7 fl (80.0-96.0); MONO # 0.5 10^3/uL (0.0-0.8); MONO % 11.2 % (0.0-5.0); NEUTROPHILS # 2.7 10^3/uL (1.8-7.7); PLATELET COUNT, AUTOMATED 211 10^3/uL (150-450); RED CELL DISTRIBUTION WIDTH 14.2 % (11.5-14.5); WHITE BLOOD COUNT 4.7 10^3/uL (4.0-10.0)
[2017-11-16 07:03] LABS: CALCIUM LEVEL 8.5 MG/DL (8.8-10.2); CREATININE FOR GFR 0.99 MG/DL (0.55-1.02); GLOMERULAR FILTRATION RATE 56.2 (>32); POTASSIUM SERUM 3.7 MEQ/L (3.5-5.1)
[2017-11-16] MEDS: FIDAXOMICIN 200 MG TAB (DIFICID) PO SCH ×2 (10:37→20:55)
[2017-11-16] MEDS: ENOXAPARIN 30 MG/0.3 ML SYR (J1650) SC SCH (10:38)
[2017-11-16] MEDS: PROCTOFOAM-HC 1% FOAM 10 GM CAN PR PRN ×2 (10:38→20:58)
[2017-11-16] MEDS: ACETAMINOPHEN TAB 650MG DOSE (2X325MG) PO PRN ×2 (10:59→15:23)
--- NOTE | 2017-11-16 11:41 | IPNPDOC ---
Text Note Date of Service The patient was seen on 11/16/17. NOTE Subjective: Patient seen and examined at bedside. Still complains of frequent diarrhea, general malaise. Objective: General: elderly, fatigued, NAD HEENT: NC/AT, EOMI Lungs: CTA B/L Heart: +S1S2, RRR Abd: soft, NT, +BS Ext: no edema IMPRESSION: 1. 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 KENNA - improving 3. Hyponatremia. Resolved. 4. Hypokalemia. Resolved. 5. DVT prophylaxis - lovenox VS,Fishbone, I+O VS, Fishbone, I+O Laboratory Tests 11/16/17 06:13 Red Blood Count 3.87 L, Mean Corpuscular Volume 90.7, Mean Corpuscular Hemoglobin 31.0, Mean Corpuscular Hemoglobin Concent 34.2, Red Cell Distribution Width 14.2, Neutrophils (%) (Auto) 58.0, Lymphocytes (%) (Auto) 29.2, Monocytes (%) (Auto) 11.2 H, Eosinophils (%) (Auto) 0.6, Basophils (%) ( Auto) 0.8, Neutrophils # (Auto) 2.7, Lymphocytes # (Auto) 1.4 L, Monocytes # ( Auto) 0.5, Eosinophils # (Auto) 0.0, Basophils # (Auto) 0.0, Calcium Level 8.5 L Vital Signs Date Time Temp Pulse Resp B/P (MAP) Pulse Ox O2 Delivery O2 Flow Rate FiO2 11/16/17 10:56 Room Air 11/16/17 06:00 97.9 68 18 161/73 (858) 82 I&O- Last 24 Hours up to 6 AM 11/17/17 06:00 Intake Total 590 ml Balance 590 ml KASH MOHAN MD Nov 16, 2017 11:40
[2017-11-16 14:00] VITALS: BP 164/77
[2017-11-16] MEDS: CHLORTHALIDONE 25 MG TAB PO SCH (20:55)
[2017-11-16] MEDS: RAMELTEON 8 MG TAB (ROZEREM) PO SCH (20:55)
[2017-11-16 22:00] VITALS: BP 168/79
[2017-11-16] MEDS: diphenhydrAMINE 25 MG CAP PO PRN (23:07)
[2017-11-17 06:00] VITALS: BP 154/80
[2017-11-17 07:03] LABS: BASO # 0.1 10^3/uL (0.0-0.2); BASO % 0.7 % (0.0-1.0); EOS % 0.4 % (0.0-3.0); IMMATURE GRANULOCYTE % 0.1 % (0-0); LYMPH # 1.3 10^3/uL (1.5-4.5); LYMPH % 18.8 % (24.0-44.0); MEAN CORPUSCULAR HEMOGLOBIN 30.8 pg (27.0-33.0); MEAN CORPUSCULAR HGB CONC 34.3 g/dl (32.0-36.5); MEAN CORPUSCULAR VOLUME 89.6 fl (80.0-96.0); MONO # 0.6 10^3/uL (0.0-0.8); MONO % 9.3 % (0.0-5.0); NEUTROPHILS # 4.8 10^3/uL (1.8-7.7); NEUTROPHILS % 70.7 % (36.0-66.0); PLATELET COUNT, AUTOMATED 228 10^3/uL (150-450); RED CELL DISTRIBUTION WIDTH 14.2 % (11.5-14.5); WHITE BLOOD COUNT 6.8 10^3/uL (4.0-10.0)
[2017-11-17 07:24] LABS: ANION GAP 10 MEQ/L (8-16); BLOOD UREA NITROGEN 4 MG/DL (7-18); CALCIUM LEVEL 8.5 MG/DL (8.8-10.2); CARBON DIOXIDE LEVEL 22 MEQ/L (21-32); CHLORIDE LEVEL 107 MEQ/L (98-107); CREATININE FOR GFR 0.91 MG/DL (0.55-1.02); GLOMERULAR FILTRATION RATE > 60.0 (>32); GLUCOSE, FASTING 107 MG/DL (83-110); POTASSIUM SERUM 3.4 MEQ/L (3.5-5.1); SODIUM LEVEL 139 MEQ/L (136-145)
--- NOTE | 2017-11-17 08:14 | IPNPDOC ---
Text Note Date of Service The patient was seen on 11/17/17. NOTE Subjective: Patient seen and examined at bedside. Still complains of diarrhea, fatigue and general malaise. Objective: General: elderly, fatigued, NAD HEENT: NC/AT, EOMI Lungs: CTA B/L Heart: +S1S2, RRR Abd: soft, NT, +BS Ext: no edema IMPRESSION: 1. 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 KENNA - resolved 3. Hyponatremia. Resolved. 4. Hypokalemia. Replete and continue to follow. Check mag. 5. DVT prophylaxis - lovenox VS,Fishbone, I+O VS, Fishbone, I+O Laboratory Tests 11/17/17 06:38 Red Blood Count 4.13, Mean Corpuscular Volume 89.6, Mean Corpuscular Hemoglobin 30.8, Mean Corpuscular Hemoglobin Concent 34.3, Red Cell Distribution Width 14.2 , Neutrophils (%) (Auto) 70.7 H, Lymphocytes (%) (Auto) 18.8 L, Monocytes (%) ( Auto) 9.3 H, Eosinophils (%) (Auto) 0.4, Basophils (%) (Auto) 0.7, Neutrophils # (Auto) 4.8, Lymphocytes # (Auto) 1.3 L, Monocytes # (Auto) 0.6, Eosinophils # (Auto) 0.0, Basophils # (Auto) 0.1, Calcium Level 8.5 L Vital Signs Date Time Temp Pulse Resp B/P (MAP) Pulse Ox O2 Delivery O2 Flow Rate FiO2 11/17/17 06:00 98.7 76 18 154/80 (104) 98 Room Air I&O- Last 24 Hours up to 6 AM 11/18/17 05:59 Intake Total 620 ml Output Total 100 ml Balance 520 ml KASH MOHAN MD Nov 17, 2017 08:14
[2017-11-17 08:20] LABS: MAGNESIUM LEVEL 1.6 MG/DL (1.8-2.4)
[2017-11-17] MEDS: CHLORTHALIDONE 25 MG TAB PO SCH (09:13)
[2017-11-17] MEDS: ENOXAPARIN 30 MG/0.3 ML SYR (J1650) SC SCH (09:14)
[2017-11-17] MEDS: FIDAXOMICIN 200 MG TAB (DIFICID) PO SCH ×2 (10:46→22:01)
[2017-11-17 14:00] VITALS: BP 168/72
[2017-11-17] MEDS ORDERED: MAG SULF 1GM/100ML (MAG RUN) 1 GM in APPROPRIATE DILUENT 1 EA IV ONE (17:30)
[2017-11-17] MEDS ORDERED: POTASSIUM CHLORIDE 10 MEQ SR TABLET PO ONE (17:30)
[2017-11-17] MEDS: PROCTOFOAM-HC 1% FOAM 10 GM CAN PR PRN ×2 (18:40→22:02)
[2017-11-17 22:00] VITALS: BP 118/63
[2017-11-17] MEDS: RAMELTEON 8 MG TAB (ROZEREM) PO SCH (22:01)
[2017-11-17] MEDS: KCL 20MEQ in NS 1000ML 1,000 ML IV SCH (23:59)
[2017-11-18 06:00] VITALS: BP 136/67
[2017-11-18 06:56] LABS: BASO % 0.7 % (0.0-1.0); EOS % 0.5 % (0.0-3.0); IMMATURE GRANULOCYTE % 0.2 % (0-0); LYMPH # 1.6 10^3/uL (1.5-4.5); LYMPH % 25.5 % (24.0-44.0); MEAN CORPUSCULAR HEMOGLOBIN 30.6 pg (27.0-33.0); MEAN CORPUSCULAR HGB CONC 33.9 g/dl (32.0-36.5); MEAN CORPUSCULAR VOLUME 90.4 fl (80.0-96.0); MONO # 0.5 10^3/uL (0.0-0.8); MONO % 8.8 % (0.0-5.0); NEUTROPHILS # 3.9 10^3/uL (1.8-7.7); NEUTROPHILS % 64.3 % (36.0-66.0); PLATELET COUNT, AUTOMATED 237 10^3/uL (150-450); RED CELL DISTRIBUTION WIDTH 14.4 % (11.5-14.5); WHITE BLOOD COUNT 6.1 10^3/uL (4.0-10.0)
[2017-11-18 07:27] LABS: CALCIUM LEVEL 9.1 MG/DL (8.8-10.2); CREATININE FOR GFR 1.07 MG/DL (0.55-1.02); GLOMERULAR FILTRATION RATE 51.4 (>32)
[2017-11-18] MEDS: FIDAXOMICIN 200 MG TAB (DIFICID) PO SCH ×2 (08:50→21:18)
[2017-11-18] MEDS: ENOXAPARIN 30 MG/0.3 ML SYR (J1650) SC SCH (08:50)
[2017-11-18] MEDS: NYSTATIN 100,000 UNITS/GM TOPICAL PWD 15 GM TOP SCH ×2 (09:00→21:18)
[2017-11-18] MEDS: CHLORTHALIDONE 25 MG TAB PO SCH (11:26)
--- NOTE | 2017-11-18 11:38 | CR ---
DATE OF CONSULTATION: 11/17/2017 Asked to consult by hospitalist for evaluation of recurrent Clostridium (C) difficile colitis. HISTORY OF PRESENT ILLNESS: Mrs. Mccabe is an 87-year-old female with a history of chronic diarrhea since May of 2017. Initially in May, she had two stool specimens gastrointestinal (GI) panel that were negative by polymerase chain reaction (PCR) for all pathogens. She underwent colonoscopy, by Dr. Faust and was diagnosed with collagenous colitis. She was treated with prednisone after she had, had diarrhea for 6 weeks and dehydration. Her diarrhea resolved. The patient was readmitted to [facility] on 09/14/2017 with recurrent diarrhea, but this time stool came back positive for C difficile. She had not had any recent antibiotics except for one dose of fosfomycin, which was given to her for an Escherichia (E) coli/Enterococcus (E) faecalis urinary tract infection (UTI) but that during the scene of admission of diarrhea. She was treated with intravenous (IV) fluids and oral vancomycin from 09/14/2017 to 09/18/2017. On 09/19/2017, she had a colonoscopy and stool transplantation. Per patient, the patient did very well and did not have recurrent diarrhea for at least 6 weeks. She states that she is very frustrated the diarrhea came back about 1 week prior to admission. She denies any vomiting or fevers. She has some abdominal pain and decreased appetite with mild nausea. She was started on to fidaxomicin with slight improvement in her symptoms. Past medical history is significant for hypertension, cataract, B12 deficiency, history of collagenous colitis diagnosed in May of 2017, C difficile colitis in August 2017 status post fecal transplantation, tubular adenomas and tubulovillous adenoma biopsied in May and in August. SURGICAL HISTORY: Cholecystectomy and cataract. ALLERGIES: AMOXICILLIN causes a rash. She has not received it more than 10 years. SOCIAL HISTORY: She quit smoking over 30 years ago, less than a pack a day. She denies alcohol or drug use. She lives at [facility]. REVIEW OF SYSTEMS: She complains of weakness but no fever or chills. No vomiting. She has some nausea, decreased appetite and vague abdominal pain. She has no rectal bleeding until today where she was noted that her hemorrhoids were acting up. She denies any dysuria, hematuria or flank pain. She is frustrated. She has also tremors. On physical exam, temperature is 96.8, pulse 87, respirations 14, blood pressure 168/72, oxygen saturation 98% on room air. Heart: Normal S1, S2. No murmurs. Lungs are clear. No wheezes, rales or rhonchi. Abdomen is soft, nontender. Patient does not want to be examined because she states she is very ticklish. Bowel sounds present. Soft. No guarding. Extremities: No clubbing, cyanosis or edema. Back: No costovertebral angle (CVA) or lumbosacral tenderness. Neurologic exam: Alert and oriented times three. She has a facial tremor and a resting tremor of her hands. White count 6.8, hemoglobin 12.7, hematocrit 37, platelets 228, 70% neutrophils, 18% lymphocytes, 9% monocytes. Sodium 139, potassium 3.4, chloride 107, bicarbonate 22, BUN 4, creatinine 0.91, glucose 107, calcium 8.5, magnesium 1.6, CRP less than 0.3, TSH 1.44, free T4 1. GI panel on 11/17/2017 was negative by PCR but on 11/10/2017 was positive. 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 It would be hard to differentiate between these two conditions as the patient recently had a stool transplantation and has recently also been treated for collagenous colitis. She does not have a white count or elevated inflammatory markers. She has no fever. Patient is currently on fidaxomicin with slight improvement of her symptoms. She was seen in consultation by Dr. Faust. I will discuss the case with him for further treatment option. At this point, I agree with continuing with the fidaxomicin 200 mg by mouth twice a day for 2 weeks. She would be a good candidate as well for Zinplava as she does not have a history of congestive heart failure, monoclonal antibody which has shown decrease recurrence of C difficile. She is at high risk as this is her second episode and she is elderly. MEDICATIONS - Benadryl 25 mg by mouth nightly as needed - chlorthalidone 25 mg by mouth daily - ProctoFoam to hemorrhoids as needed - fidaxomicin 200 mg by mouth twice a day (currently day #3) - Zofran as needed - Lovenox 30 mg subcutaneous daily IMAGING STUDIES: None done this admission. PLAN: Continue fidaxomicin. Will consider Zinplava and discuss the case with Dr. Faust regarding further treatment.
[2017-11-18 14:00] VITALS: BP 148/62
[2017-11-18] MEDS: KCL 20MEQ in NS 1000ML 1,000 ML IV SCH (17:00)
[2017-11-18] MEDS: RAMELTEON 8 MG TAB (ROZEREM) PO SCH (21:18)
[2017-11-18] MEDS: ACETAMINOPHEN TAB 650MG DOSE (2X325MG) PO PRN (21:19)
[2017-11-18 22:00] VITALS: BP 148/81
[2017-11-19] MEDS ORDERED: DIAPER RELIEF PASTE (DESITIN) 60GM TOP PRN (01:00)
[2017-11-19 06:00] VITALS: BP 153/82
[2017-11-19 06:56] LABS: BASO % 0.8 % (0.0-1.0); EOS # 0.1 10^3/uL (0.0-0.50); EOS % 1.4 % (0.0-3.0); IMMATURE GRANULOCYTE % 0.2 % (0-0); LYMPH # 1.2 10^3/uL (1.5-4.5); LYMPH % 23.6 % (24.0-44.0); MEAN CORPUSCULAR HEMOGLOBIN 30.4 pg (27.0-33.0); MEAN CORPUSCULAR HGB CONC 34.1 g/dl (32.0-36.5); MEAN CORPUSCULAR VOLUME 89.1 fl (80.0-96.0); MONO # 0.5 10^3/uL (0.0-0.8); MONO % 9.9 % (0.0-5.0); NEUTROPHILS # 3.2 10^3/uL (1.8-7.7); NEUTROPHILS % 64.1 % (36.0-66.0); PLATELET COUNT, AUTOMATED 219 10^3/uL (150-450); RED CELL DISTRIBUTION WIDTH 14.4 % (11.5-14.5); WHITE BLOOD COUNT 5.1 10^3/uL (4.0-10.0)
[2017-11-19 07:04] LABS: CALCIUM LEVEL 8.9 MG/DL (8.8-10.2); CREATININE FOR GFR 1.02 MG/DL (0.55-1.02); GLOMERULAR FILTRATION RATE 54.3 (>32); POTASSIUM SERUM 3.6 MEQ/L (3.5-5.1)
--- NOTE | 2017-11-19 08:05 | IPN ---
DATE: 11/18/2017 SUBJECTIVE: Patient seen and examined in the room today. Patient continues to be very frustrated with the frequent bowel movements. Per patient, she had more than seven bowel movements in the last 24 hours. She does not feel well. Continues to have poor oral intake. OBJECTIVE: VITAL SIGNS: Temperature 98.5, pulse 104, respirations 15, blood pressure is 136/67, pulse oximetry is 95% in room air. GENERAL: Mild distress. Alert and oriented times three. HEENT: Normocephalic, atraumatic. Extraocular motor grossly intact. CARDIOVASCULAR: Positive S1, S2, regular rate. LUNGS: Clear to auscultation bilaterally. ABDOMEN: Soft, nontender. Bowel sounds present. EXTREMITIES: No edema. No cyanosis. LABORATORY DATA: WBC 6.1, hemoglobin is 13.1, hematocrit 38.7, platelet count 237. Sodium 139, potassium 4, chloride 109, carbon dioxide is 20, BUN is 5, creatinine 1.07, GFR is 51.4, fasting glucose 115, calcium 9.1. ASSESSMENT AND PLAN: 1. Recurrent Clostridium (C) difficile. Patient is currently on Dificid. Infectious disease specialist, Dr. Monique, has been consulted. There is a possibility patient will get Zinplava, but that will be set up in the outpatient setting. 2. Acute kidney injury. There is acute decrease of renal function, most likely secondary to poor oral intake. Will encourage to increase oral intake as tolerated. If patient continues to hae worsening renal function, we ma start resuscitations. 3. History of hyponatremia and hypokalemia, resolved. 4. Deep vein thrombosis (DVT) prophylaxis, on Lovenox.
[2017-11-19] MEDS: NYSTATIN 100,000 UNITS/GM TOPICAL PWD 15 GM TOP SCH ×2 (09:34→20:15)
[2017-11-19] MEDS: FIDAXOMICIN 200 MG TAB (DIFICID) PO SCH ×2 (09:34→20:14)
[2017-11-19] MEDS: ENOXAPARIN 30 MG/0.3 ML SYR (J1650) SC SCH (09:34)
[2017-11-19 14:00] VITALS: BP 158/86
[2017-11-19] MEDS: KCL 20MEQ in NS 1000ML 1,000 ML IV SCH (14:26)
--- NOTE | 2017-11-19 15:25 | IPNPDOC ---
Text Note Date of Service The patient was seen on 11/19/17. NOTE SUBJECTIVE: Patient seen and examined in the room today. Patient continues to be very frustrated with the frequent bowel movements. Patient states she does not any improvement in the last few days. OBJECTIVE: VITAL SIGNS:Listed below GENERAL: Mild distress. Alert and oriented times three. HEENT: Normocephalic, atraumatic. Extraocular motor grossly intact. CARDIOVASCULAR: Positive S1, S2, regular rate. LUNGS: Clear to auscultation bilaterally. ABDOMEN: Soft, nontender. Bowel sounds present. EXTREMITIES: No edema. No cyanosis. LABORATORY DATA: Listed below ASSESSMENT AND PLAN: 1. Recurrent Clostridium (C) difficile. Dificid started on 11/14/17. Patient needs 2 weeks of dificid per recommendation. Infectious disease specialist, Dr. Monique, has been consulted. There is a possibility patient will get Zinplava, but that will be set up in the outpatient setting. 2. Acute kidney injury. There is acute decrease of renal function, most likely secondary to poor oral intake. Will encourage to increase oral intake as tolerated. If patient continues to hae worsening renal function, we ma start resuscitations. 3. History of hyponatremia and hypokalemia, resolved. 4. Deep vein thrombosis (DVT) prophylaxis, on Lovenox. VS,Fishbone, I+O VS, Fishbone, I+O Laboratory Tests 11/19/17 06:31 Red Blood Count 4.14, Mean Corpuscular Volume 89.1, Mean Corpuscular Hemoglobin 30.4, Mean Corpuscular Hemoglobin Concent 34.1, Red Cell Distribution Width 14.4 , Neutrophils (%) (Auto) 64.1, Lymphocytes (%) (Auto) 23.6 L, Monocytes (%) ( Auto) 9.9 H, Eosinophils (%) (Auto) 1.4, Basophils (%) (Auto) 0.8, Neutrophils # (Auto) 3.2, Lymphocytes # (Auto) 1.2 L, Monocytes # (Auto) 0.5, Eosinophils # (Auto) 0.1, Basophils # (Auto) 0.0, Calcium Level 8.9 Vital Signs Date Time Temp Pulse Resp B/P (MAP) Pulse Ox O2 Delivery O2 Flow Rate FiO2 11/19/17 06:00 97.2 74 18 153/82 (105) 98 Room Air I&O- Last 24 Hours up to 6 AM 11/19/17 06:00 Intake Total 418.8 ml Output Total 500 ml Balance -81.2 ml DENY ZUNIGA DO Nov 19, 2017 15:25
[2017-11-19] MEDS: ACETAMINOPHEN TAB 650MG DOSE (2X325MG) PO PRN (20:13)
[2017-11-19] MEDS: RAMELTEON 8 MG TAB (ROZEREM) PO SCH (20:14)
[2017-11-19] MEDS: diphenhydrAMINE 25 MG CAP PO PRN (20:15)
[2017-11-19 22:00] VITALS: BP 154/82
[2017-11-20 07:10] LABS: BASO # 0.1 10^3/uL (0.0-0.2); BASO % 1.2 % (0.0-1.0); EOS # 0.1 10^3/uL (0.0-0.50); EOS % 1.4 % (0.0-3.0); IMMATURE GRANULOCYTE % 0.4 % (0-0); LYMPH # 1.3 10^3/uL (1.5-4.5); MEAN CORPUSCULAR HEMOGLOBIN 31.1 pg (27.0-33.0); MEAN CORPUSCULAR HGB CONC 34.2 g/dl (32.0-36.5); MEAN CORPUSCULAR VOLUME 91.1 fl (80.0-96.0); MONO # 0.5 10^3/uL (0.0-0.8); MONO % 10.2 % (0.0-5.0); NEUTROPHILS # 3.1 10^3/uL (1.8-7.7); NEUTROPHILS % 60.8 % (36.0-66.0); PLATELET COUNT, AUTOMATED 205 10^3/uL (150-450); RED CELL DISTRIBUTION WIDTH 14.2 % (11.5-14.5); WHITE BLOOD COUNT 5.1 10^3/uL (4.0-10.0)
[2017-11-20 07:30] LABS: CALCIUM LEVEL 8.8 MG/DL (8.8-10.2); CREATININE FOR GFR 1.11 MG/DL (0.55-1.02); GLOMERULAR FILTRATION RATE 49.3 (>32); MAGNESIUM LEVEL 1.7 MG/DL (1.8-2.4); POTASSIUM SERUM 3.6 MEQ/L (3.5-5.1)
[2017-11-20] MEDS: ACETAMINOPHEN TAB 650MG DOSE (2X325MG) PO PRN ×2 (08:31→20:17)
[2017-11-20] MEDS: FIDAXOMICIN 200 MG TAB (DIFICID) PO SCH ×2 (08:31→20:16)
[2017-11-20] MEDS: ENOXAPARIN 30 MG/0.3 ML SYR (J1650) SC SCH ×2 (08:32→08:35)
[2017-11-20] MEDS: NYSTATIN 100,000 UNITS/GM TOPICAL PWD 15 GM TOP SCH ×2 (09:00→20:16)
[2017-11-20] MEDS: KCL 20MEQ in NS 1000ML 1,000 ML IV SCH (10:25)
--- NOTE | 2017-11-20 14:32 | IPNPDOC ---
Text Note Date of Service The patient was seen on 11/20/17. NOTE SUBJECTIVE: Patient seen and examined in the room today. Patient continues to be very frustrated with the frequent bowel movements. Patient states she does not any improvement in the last few days. Patient states her appetite remains very poor. OBJECTIVE: VITAL SIGNS:Listed below GENERAL: Mild distress. Alert and oriented times three. HEENT: Normocephalic, atraumatic. Extraocular motor grossly intact. CARDIOVASCULAR: Positive S1, S2, regular rate. LUNGS: Clear to auscultation bilaterally. ABDOMEN: Soft, nontender. Bowel sounds present. EXTREMITIES: No edema. No cyanosis. LABORATORY DATA: Listed below ASSESSMENT AND PLAN: 1. Recurrent Clostridium (C) difficile. Dificid started on 11/14/17. Patient needs 2 weeks of dificid per recommendation. Infectious disease specialist, Dr. Monique, has been consulted. There is a possibility patient will get Zinplava, but that will be set up in the outpatient setting. - Patient continues having poor oral intake. According to the staff, patient only ate 20% of her meals. 2. Acute kidney injury. There is acute decrease of renal function, most likely secondary to poor oral intake. encourage patient to increase oral intake as tolerated. Patient is on fluid support. 3. Hyponatremia and hypokalemia. most likely secondary to GI loss. Will supplement as needed. 4. Deep vein thrombosis (DVT) prophylaxis, on Lovenox. VS,Fishbone, I+O VS, Fishbone, I+O Laboratory Tests 11/20/17 06:44 Red Blood Count 3.95 L, Mean Corpuscular Volume 91.1, Mean Corpuscular Hemoglobin 31.1, Mean Corpuscular Hemoglobin Concent 34.2, Red Cell Distribution Width 14.2, Neutrophils (%) (Auto) 60.8, Lymphocytes (%) (Auto) 26.0, Monocytes (%) (Auto) 10.2 H, Eosinophils (%) (Auto) 1.4, Basophils (%) ( Auto) 1.2 H, Neutrophils # (Auto) 3.1, Lymphocytes # (Auto) 1.3 L, Monocytes # ( Auto) 0.5, Eosinophils # (Auto) 0.1, Basophils # (Auto) 0.1, Calcium Level 8.8 Vital Signs Date Time Temp Pulse Resp B/P (MAP) Pulse Ox O2 Delivery O2 Flow Rate FiO2 11/19/17 22:00 97.1 66 18 154/82 (106) 98 Room Air I&O- Last 24 Hours up to 6 AM 11/20/17 06:00 Intake Total 1220 ml Output Total 500 ml Balance 720 ml DENY ZUNIGA DO Nov 20, 2017 14:32
[2017-11-20] MEDS: MAGNESIUM OXIDE 400 MG TAB (MAG-OX) PO SCH (20:16)
[2017-11-20] MEDS: RAMELTEON 8 MG TAB (ROZEREM) PO SCH (20:16)
[2017-11-20] MEDS: diphenhydrAMINE 25 MG CAP PO PRN (20:17)
[2017-11-20 22:00] VITALS: BP 152/80
[2017-11-21] MEDS: KCL 20MEQ in NS 1000ML 1,000 ML IV SCH (05:19)
[2017-11-21 06:00] VITALS: BP 158/67
[2017-11-21] MEDS: ACETAMINOPHEN TAB 650MG DOSE (2X325MG) PO PRN (06:12)
[2017-11-21] MEDS ORDERED: predniSONE 20 MG TAB PO SCH (07:00)
[2017-11-21 07:24] LABS: BASO # 0.1 10^3/uL (0.0-0.2); EOS # 0.1 10^3/uL (0.0-0.50); EOS % 1.4 % (0.0-3.0); IMMATURE GRANULOCYTE % 0.2 % (0-0); LYMPH # 1.5 10^3/uL (1.5-4.5); LYMPH % 30.2 % (24.0-44.0); MEAN CORPUSCULAR HEMOGLOBIN 30.5 pg (27.0-33.0); MEAN CORPUSCULAR HGB CONC 33.6 g/dl (32.0-36.5); MEAN CORPUSCULAR VOLUME 90.9 fl (80.0-96.0); MONO # 0.5 10^3/uL (0.0-0.8); MONO % 10.3 % (0.0-5.0); NEUTROPHILS # 2.9 10^3/uL (1.8-7.7); NEUTROPHILS % 56.9 % (36.0-66.0); PLATELET COUNT, AUTOMATED 206 10^3/uL (150-450); RED CELL DISTRIBUTION WIDTH 14.5 % (11.5-14.5)
[2017-11-21 07:44] LABS: CALCIUM LEVEL 8.9 MG/DL (8.8-10.2); CREATININE FOR GFR 1.06 MG/DL (0.55-1.02); POTASSIUM SERUM 3.9 MEQ/L (3.5-5.1)
[2017-11-21] MEDS: FIDAXOMICIN 200 MG TAB (DIFICID) PO SCH (09:06)
[2017-11-21] MEDS: ENOXAPARIN 30 MG/0.3 ML SYR (J1650) SC SCH ×2 (09:06→09:08)
[2017-11-21] MEDS: MAGNESIUM OXIDE 400 MG TAB (MAG-OX) PO SCH (09:06)
[2017-11-21] MEDS: NYSTATIN 100,000 UNITS/GM TOPICAL PWD 15 GM TOP SCH (09:06)
[2017-11-21 10:00] VITALS: BP 148/64
[2017-11-21] MEDS ORDERED: PRED20TA PO (11:30)
[2017-11-21] MEDS ORDERED: VANC125C2 PO (11:30)
[2017-11-21 14:00] VITALS: BP 136/72
--- NOTE | 2017-11-21 16:47 | DSES ---
DATE OF ADMISSION: 11/14/2017 DATE OF DISCHARGE: 11/21/2017 PRIMARY CARE PROVIDER: Raheem Gillespie MD CONSULTANTS: Infectious disease specialist, Dr. Monique DISCHARGE DIAGNOSES: 1. Recurrent Clostridium (C.) difficile. 2. Acute kidney injury. 3. Hyponatremia. 4. Hypokalemia. HOSPITALIZATION COURSE: The patient is an 87-year-old female, presented to [facility] 11/14/2017 for recurrent C. difficile diarrhea. 11/10/2017, the patient's GI panel ordered by Dr. Bhavik Faust which came back positive for C. Difficile. The patient came to [facility] because her symptoms is not being managed with outpatient antibiotic therapy. The patient was admitted with a diagnosis of recurrent C. difficile. The case was discussed with Dr. Bhavik Faust. Later, due to patient's C. difficile Dr. Monique was consulted. The patient continued with antibiotic treatments. Gradually and slowly the patient's diarrhea started to improve. Later, the patient is able to tolerate more oral intake and the patient passed physical therapy. The case was discussed with Dr. Faust again who felt the patient may benefit from the oral steroids. On 11/21/2017, the patient determined medically stable for discharge with recommendation to follow with Dr. Faust at a scheduled time. The patient issued official course of vancomycin tapering. VITAL SIGNS: Temperature is 97.6, pulse 75, respirations 20, blood pressure is 136/72, pulse oximetry is 98% on room air. LABORATORY DATA: WBC 5, hemoglobin 12.7, hematocrit 37.8, platelet count is 206, sodium 140, potassium 3.9, chloride 108, carbon dioxide 24, BUN 11, creatinine 1.06, GFR is 52. Fasting glucose 96, calcium 8.9. DISCHARGE MEDICATIONS: - prednisone 20 mg oral daily - vancomycin taper. The recommended vancomycin taper includes 125 mg oral four times a day for 10 days, then 125 mg oral twice a day for 7 days, then 125 mg oral every day for 7 days, then 125 mg oral every 2 days for 7 days, then 125 mg oral every 3 days for 14 days. 10 days of vancomycin is prescribed to the patient and patient should followup with GI specialist and primary care provider within 7 to 10 days to reassess patient's condition and make medication adjustments appropriately. - chlorthalidone 25 mg oral daily - vitamin D3 1000 mg oral every day - vitamin B12 1000 mcg oral every day - Lexapro 20 mg oral every day - Claritin 10 mg oral every day as needed - multivitamin 1 tablet oral every day - Lyrica 100 mg oral twice a day DISCHARGE INSTRUCTIONS: Discontinue lines. Discharge home. Activity as tolerated. Diet as tolerated. The patient should continue with vancomycin taper and be reassessed by the GI specialist, Dr. Faust. Due to suspicion colectomy colitis, the patient started a trial of oral prednisone per Dr. Faust's recommendation. The patient requires reassessment at the scheduled time. The patient is to see Dr. Faust within 10 days. Recommend to followup with primary care provider within 1 week. DISCHARGE CONDITION: Fair. TIME SPENT ON DISCHARGE: Greater than 30 minutes.
--- NOTE | 2017-11-24 06:43 | IPN ---
DATE: 11/21/2017 The patient continues to have diarrhea. Dr. Faust who has followed the patient as an outpatient has not seen her this week, but has followed her through the computer record and called me discussing her care. He recommended that we start her on prednisone 20 mg daily for collagenous colitis as she continues to have diarrhea in spite of being on fidaxomicin for 7 days. The patient is anxious to go home. She has remained afebrile throughout the admission with a normal white count. She had about two to three bowel movement movements a day, previously 7. On physical exam, temperature is 97.6, pulse 75, respirations 20, blood pressure 136/72 and oxygen sat 98% on room air. Abdomen is soft, nontender. No splenomegaly. IMPRESSION: 1. Clostridium difficile colitis, recurrent, with a positive stool for C. diff on 11/10/2017, negative on 11/17/2017, with some improvement with the fidaxomicin. 2. History of collagenous colitis, previously treated with prednisone. PLAN: The case has been discussed with Dr. Faust. He will start her on prednisone 20 mg daily with a slow taper and keep her on that for a while to prevent recurrence. As far as her C difficile, she has received 10 days of fidaxomicin. I would suggest discharging her with a vancomycin taper over 6 weeks. Starting with 125 mg four times a day for 2 weeks, twice a day for one week, daily for one week, every other day for one week and every third day for one week. The case has been discussed with Dr. Luo who agrees with the plan. The patient will go back to [facility].
== END 2017-11-21 15:42 | disposition home or self-care (01) | DRG 372 ==
LOC: M ED 13:02 → M ED INP 15:36 → M MS5PR 16:50
PROVIDERS: ADMIT General Practice; ATTEND Internal Medicine
DX: A04.71 Enterocolitis due to Clostridium difficile, recurrent (principal); E87.1 Hypo-osmolality and hyponatremia; N17.9 Acute kidney failure, unspecified; E87.6 Hypokalemia; F32.9 Major depressive disorder, single episode, unspecified; I10 Essential (primary) hypertension; K52.831 Collagenous colitis; Z79.899 Other long term (current) drug therapy; Z88.0 Allergy status to penicillin; Z88.1 Allergy status to other antibiotic agents; Z90.49 Acquired absence of other specified parts of digestive tract; Z98.49 Cataract extraction status, unspecified eye; Z87.891 Personal history of nicotine dependence

== ENCOUNTER 2017-11-30 08:40 | Inpatient (IN) | payer OTHER ==
[2017-11-30] MEDS: ONDANSETRON 4MG/2ML VIAL (J2405) IV (09:49)
[2017-11-30] MEDS: MORPHINE 2 MG/ML 1ML SYRINGE IV (09:49)
[2017-11-30] MEDS: NS 1,000 ML IV (09:49)
[2017-11-30 09:50] LABS: BASO % 0.3 % (0.0-1.0); EOS % 0.1 % (0.0-3.0); HEMATOCRIT 38.4 % (36.0-47.0); HEMOGLOBIN 12.8 g/dl (12.0-16.0); IMMATURE GRANULOCYTE # 0.1 10^3/uL (0-0); IMMATURE GRANULOCYTE % 1.1 % (0-0); LYMPH # 0.9 10^3/uL (1.5-4.5); LYMPH % 7.4 % (24.0-44.0); MEAN CORPUSCULAR HEMOGLOBIN 30.9 pg (27.0-33.0); MEAN CORPUSCULAR HGB CONC 33.3 g/dl (32.0-36.5); MEAN CORPUSCULAR VOLUME 92.8 fl (80.0-96.0); MONO # 0.4 10^3/uL (0.0-0.8); MONO % 3.4 % (0.0-5.0); NEUTROPHILS # 10.7 10^3/uL (1.8-7.7); NEUTROPHILS % 87.7 % (36.0-66.0); PLATELET COUNT, AUTOMATED 213 10^3/uL (150-450); RED BLOOD COUNT 4.14 10^6/uL (4.00-5.40); RED CELL DISTRIBUTION WIDTH 14.4 % (11.5-14.5); WHITE BLOOD COUNT 12.2 10^3/uL (4.0-10.0)
[2017-11-30] MEDS: TETANUS/DIPHTHERIA TOX ADSORB ADULT 0.5ML SYR/VIAL (90714) IM (09:59)
[2017-11-30 10:00] LABS: INR 0.95; PROTHROMBIN TIME 12.7 SECONDS (12.4-14.5)
[2017-11-30 10:27] LABS: ALBUMIN 3.6 GM/DL (3.2-5.2); ALBUMIN/GLOBULIN RATIO 1.13 (1.00-1.93); ALKALINE PHOSPHATASE 78 U/L (45-117); ALT/SGPT 27 U/L (12-78); ANION GAP 8 MEQ/L (8-16); AST/SGOT 19 U/L (7-37); BILIRUBIN,DIRECT < 0.1 MG/DL (0.0-0.2); BILIRUBIN,TOTAL 0.3 MG/DL (0.2-1.0); BLOOD UREA NITROGEN 25 MG/DL (7-18); CALCIUM LEVEL 8.7 MG/DL (8.8-10.2); CARBON DIOXIDE LEVEL 28 MEQ/L (21-32); CHLORIDE LEVEL 102 MEQ/L (98-107); CK-MB VALUE MASS 1.7 NG/ML (0.0-3.6); CPK CREATINE PHOSPHOKINASE 178 U/L (26-192); CREATININE FOR GFR 1.44 MG/DL (0.55-1.02); GLOMERULAR FILTRATION RATE 36.5 (>32); GLUCOSE, FASTING 130 MG/DL (83-110); MB/CK RELATIVE INDEX 0.95 (< OR =4); SODIUM LEVEL 138 MEQ/L (136-145); TOTAL PROTEIN 6.8 GM/DL (6.4-8.2); TROPONIN I 0.03 NG/ML (< 0.10)
[2017-11-30] MEDS ORDERED: ONDANSETRON 4MG/2ML VIAL (J2405) IV (11:15)
[2017-11-30] MEDS ORDERED: PERCOCET 5MG/325MG TAB PO (11:15)
[2017-11-30] MEDS ORDERED: ACETAMINOPHEN TAB 650MG DOSE (2X325MG) PO (11:15)
[2017-11-30] MEDS ORDERED: MORPHINE 2 MG/ML 1ML SYRINGE IV (11:15)
[2017-11-30] MEDS ORDERED: NS 1,000 ML IV (12:00)
[2017-11-30] MEDS: D5W 1,000 ML IV (14:10)
== END 2017-11-30 17:08 | disposition short-term general hospital (02) | DRG 536 ==
LOC: M ED 08:40 → M ED INP 11:04
DX: S72.001A Fracture of unspecified part of neck of right femur, initial encounter for closed fracture (principal); I35.0 Nonrheumatic aortic (valve) stenosis; I10 Essential (primary) hypertension; R94.31 Abnormal electrocardiogram [ECG] [EKG]; I27.20 Pulmonary hypertension, unspecified; W01.0XXA Fall on same level from slipping, tripping and stumbling without subsequent striking against object, initial encounter; Y92.019 Unspecified place in single-family (private) house as the place of occurrence of the external cause; Y93.01 Activity, walking, marching and hiking; Y99.9 Unspecified external cause status; Z79.899 Other long term (current) drug therapy; Z88.0 Allergy status to penicillin; Z90.49 Acquired absence of other specified parts of digestive tract; Z87.891 Personal history of nicotine dependence

== ENCOUNTER → 2018-01-09 | Outpatient (REF) | payer OTHER ==
[2018-01-09 16:41] LABS: APPEARANCE, URINE CLEAR (CLEAR); BACTERIA, URINE AUTO NEGATIVE (NEGATIVE); BILIRUBIN, URINE AUTO NEGATIVE (NEGATIVE); BLOOD, URINE BLOOD 1+ (NEGATIVE); COLOR, URINE YELLOW (YELLOW); GLUCOSE, URINE (UA) AUTO NEGATIVE (NEGATIVE); KETONE, URINE AUTO 2+ mg/dL (NEGATIVE); LEUKOCYTE ESTERASE, URINE AUTO 1+ (NEGATIVE); NITRITE, URINE AUTO NEGATIVE (NEGATIVE); PROTEIN, URINE AUTO 1+ mg/dL (NEGATIVE); RBC, URINE AUTO 4 /HPF (0-3); SPECIFIC GRAVITY URINE AUTO 1.021 (1.002-1.035); SQUAMOUS EPITHELIAL CELL UR AU 1 /HPF (0-6); TRANSITIONAL EPITHELIAL AUTO 1 /HPF; WBC, URINE AUTO 12 /HPF (0-3)
== END ==
LOC: M LAB REF 15:24
DX: N39.0 Urinary tract infection, site not specified (principal)
CPT/HCPCS: 81001

== ENCOUNTER → 2018-02-28 | Outpatient (REF) | payer MEDICARE, OTHER | LOC: M LAB 15:25 | DX: R19.7 Diarrhea, unspecified (principal) | CPT/HCPCS: 87507 ==

== ENCOUNTER 2018-03-27 13:36 | Emergency (ER) | payer MEDICARE, MEDICAID ==
[2018-03-27] MEDS: NS 1,000 ML IV (13:22)
[2018-03-27 13:35] LABS: BASO % 0.5 % (0.0-1.0); EOS # 0.1 10^3/uL (0.0-0.50); EOS % 1.2 % (0.0-3.0); HEMATOCRIT 33.3 % (36.0-47.0); HEMOGLOBIN 10.9 g/dl (12.0-15.5); IMMATURE GRANULOCYTE % 0.2 % (0-3.0); LYMPH # 1.4 10^3/uL (1.5-4.5); LYMPH % 22.4 % (24.0-44.0); MEAN CORPUSCULAR HEMOGLOBIN 31.3 pg (27.0-33.0); MEAN CORPUSCULAR HGB CONC 32.7 g/dl (32.0-36.5); MEAN CORPUSCULAR VOLUME 95.7 fl (80.0-96.0); MONO # 0.6 10^3/uL (0.0-0.8); MONO % 9.3 % (0.0-5.0); NEUTROPHILS # 4.3 10^3/uL (1.8-7.7); NEUTROPHILS % 66.4 % (36.0-66.0); PLATELET COUNT, AUTOMATED 209 10^3/uL (150-450); RED BLOOD COUNT 3.48 10^6/uL (4.00-5.40); RED CELL DISTRIBUTION WIDTH 14.1 % (11.5-14.5); WHITE BLOOD COUNT 6.4 10^3/uL (4.0-10.0)
[2018-03-27 13:48] LABS: ALBUMIN/GLOBULIN RATIO 0.73 (1.00-1.93); ALKALINE PHOSPHATASE 85 U/L (45-117); ALT/SGPT 9 U/L (12-78); ANION GAP 6 MEQ/L (8-16); AST/SGOT 13 U/L (7-37); BILIRUBIN,DIRECT < 0.1 MG/DL (0.0-0.2); BILIRUBIN,TOTAL 0.2 MG/DL (0.2-1.0); BLOOD UREA NITROGEN 18 MG/DL (7-18); CALCIUM LEVEL 9.1 MG/DL (8.8-10.2); CARBON DIOXIDE LEVEL 28 MEQ/L (21-32); CHLORIDE LEVEL 108 MEQ/L (98-107); CREATININE FOR GFR 1.35 MG/DL (0.55-1.30); GLOMERULAR FILTRATION RATE 39.3 (>32); GLUCOSE, FASTING 97 MG/DL (70-100); LIPASE 80 U/L (73-393); POTASSIUM SERUM 3.9 MEQ/L (3.5-5.1); SODIUM LEVEL 142 MEQ/L (136-145); TOTAL PROTEIN 7.1 GM/DL (6.4-8.2)
== END 2018-03-27 18:18 | disposition home or self-care (01) ==
LOC: M ED 13:36
DX: R19.7 Diarrhea, unspecified (principal); F03.90 Unspecified dementia, unspecified severity, without behavioral disturbance, psychotic disturbance, mood disturbance, and anxiety; Z79.2 Long term (current) use of antibiotics; Z79.82 Long term (current) use of aspirin; Z79.899 Other long term (current) drug therapy; Z86.19 Personal history of other infectious and parasitic diseases; Z98.890 Other specified postprocedural states; Z88.0 Allergy status to penicillin
CPT/HCPCS: 83690

== ENCOUNTER → 2018-05-04 | Outpatient (CLI) | payer MEDICARE, MEDICAID ==
[2018-05-04 13:23] LABS: HEMOGLOBIN 11.2 g/dl (12.0-15.5); MEAN CORPUSCULAR HGB CONC 32.9 g/dl (32.0-36.5); MEAN CORPUSCULAR VOLUME 94.2 fl (80.0-96.0); PLATELET COUNT, AUTOMATED 239 10^3/uL (150-450); RED BLOOD COUNT 3.61 10^6/uL (4.00-5.40); RED CELL DISTRIBUTION WIDTH 14.7 % (11.5-14.5)
[2018-05-04 13:48] LABS: ANION GAP 8 MEQ/L (8-16); BLOOD UREA NITROGEN 15 MG/DL (7-18); CALCIUM LEVEL 9.4 MG/DL (8.8-10.2); CARBON DIOXIDE LEVEL 26 MEQ/L (21-32); CHLORIDE LEVEL 109 MEQ/L (98-107); CREATININE FOR GFR 1.28 MG/DL (0.55-1.30); GLOMERULAR FILTRATION RATE 41.8 (>32); GLUCOSE, FASTING 95 MG/DL (70-100); POTASSIUM SERUM 3.7 MEQ/L (3.5-5.1); SODIUM LEVEL 143 MEQ/L (136-145)
== END ==
LOC: M SMT 10:22
DX: K52.831 Collagenous colitis (principal); N17.9 Acute kidney failure, unspecified; D64.9 Anemia, unspecified
CPT/HCPCS: 80048

== ENCOUNTER 2018-06-10 11:12 | Emergency (ER) | payer MEDICARE, MEDICAID ==
[2018-06-10] MEDS: NS 1,000 ML IV (11:16)
[2018-06-10 11:58] LABS: BASO % 0.4 % (0.0-1.0); EOS # 0.1 10^3/uL (0.0-0.50); EOS % 1.5 % (0.0-3.0); HEMOGLOBIN 10.4 g/dl (12.0-15.5); IMMATURE GRANULOCYTE % 0.3 % (0-3.0); LYMPH # 1.1 10^3/uL (1.5-4.5); LYMPH % 15.5 % (24.0-44.0); MEAN CORPUSCULAR HEMOGLOBIN 30.6 pg (27.0-33.0); MEAN CORPUSCULAR HGB CONC 33.5 g/dl (32.0-36.5); MEAN CORPUSCULAR VOLUME 91.2 fl (80.0-96.0); MONO # 0.6 10^3/uL (0.0-0.8); MONO % 8.6 % (0.0-5.0); NEUTROPHILS # 5.1 10^3/uL (1.8-7.7); NEUTROPHILS % 73.7 % (36.0-66.0); PLATELET COUNT, AUTOMATED 199 10^3/uL (150-450); WHITE BLOOD COUNT 6.9 10^3/uL (4.0-10.0)
[2018-06-10 12:24] LABS: ALBUMIN/GLOBULIN RATIO 0.79 (1.00-1.93); ALKALINE PHOSPHATASE 97 U/L (45-117); ALT/SGPT 16 U/L (12-78); ANION GAP 7 MEQ/L (8-16); AST/SGOT 12 U/L (7-37); BILIRUBIN,DIRECT < 0.1 MG/DL (0.0-0.2); BILIRUBIN,TOTAL 0.3 MG/DL (0.2-1.0); BLOOD UREA NITROGEN 16 MG/DL (7-18); CALCIUM LEVEL 8.9 MG/DL (8.8-10.2); CARBON DIOXIDE LEVEL 25 MEQ/L (21-32); CHLORIDE LEVEL 108 MEQ/L (98-107); CREATININE FOR GFR 1.18 MG/DL (0.55-1.30); GLOMERULAR FILTRATION RATE 45.9 (>32); GLUCOSE, FASTING 100 MG/DL (70-100); LIPASE 97 U/L (73-393); POTASSIUM SERUM 3.7 MEQ/L (3.5-5.1); SODIUM LEVEL 140 MEQ/L (136-145); TOTAL PROTEIN 6.8 GM/DL (6.4-8.2)
== END 2018-06-10 15:15 | disposition home or self-care (01) ==
LOC: M ED 11:12
DX: R19.7 Diarrhea, unspecified (principal); I12.9 Hypertensive chronic kidney disease with stage 1 through stage 4 chronic kidney disease, or unspecified chronic kidney disease; N18.9 Chronic kidney disease, unspecified; Z87.19 Personal history of other diseases of the digestive system; Z86.19 Personal history of other infectious and parasitic diseases; Z88.0 Allergy status to penicillin; Z79.899 Other long term (current) drug therapy; Z79.82 Long term (current) use of aspirin
CPT/HCPCS: 83690

== ENCOUNTER → 2018-06-11 | Outpatient (REF) | payer MEDICARE | LOC: M LAB REF 11:39 | DX: R19.7 Diarrhea, unspecified (principal) | CPT/HCPCS: 87493 ==